=== PATIENT | male | born 1965 | race Caucasian/White ===

== ENCOUNTER 2017-01-09 07:27 | Day surgery (SDC) | payer BC ==
[~2017-01-09 07:27] MED LIST: Midazolam 1 MG/ML 2 ML SDV ONE; Propofol 200 MG/20 ML SDV ONE; Sodium Chloride 0.9% 10 ML ONE; Sodium Tetradecyl Sulfate 1% 20 MG/2 ML SDV ONE; fentaNYL 100 MCG/2 ML SDV ONE
[2017-01-09] MEDS ORDERED: Propofol 200 MG/20 ML SDV ONE ×4 (08:40→09:47)
[2017-01-09] MEDS ORDERED: Sodium Chloride 0.9% 1,000 ML IV SCH (09:00)
[2017-01-09] MEDS ORDERED: Sodium Chloride 0.9% 10 ML SDV IV ONE (09:25)
[2017-01-09] MEDS ORDERED: Sodium Tetradecyl Sulfate 1% 20 MG/2 ML SDV ONE (09:32)
[2017-01-09] MEDS ORDERED: Sodium Chloride 0.9% 10 ML ONE (09:32)
[2017-01-09] MEDS ORDERED: fentaNYL 100 MCG/2 ML SDV ONE (09:41)
[2017-01-09] MEDS: EPINEPHRINE INJECT SCH ×2 (09:42→09:43)
[2017-01-09] MEDS: SODIUM CHLORIDE 0.9% INJECT SCH ×2 (09:42→09:43)
[2017-01-09] MEDS: [UNRECOGNIZED DRUG - OTHER] INJECT SCH ×2 (09:42→09:43)
[2017-01-09] MEDS: SODIUM BICARBONATE INJECT SCH ×2 (09:42→09:43)
[2017-01-09] MEDS: LIDOCAINE 1% INJECT SCH ×2 (09:42→09:43)
[2017-01-09] MEDS ORDERED: Lidocaine 1% with EPINEPHrine 1:100,000 50 ML MDV INJECT ONE (09:54)
[2017-01-09 11:26] VITALS: BP 121/82
--- NOTE | 2017-01-09 12:27 | OR ---
DATE OF PROCEDURE: 01/09/2017 PROCEDURES: 1. Radiofrequency ablation of left greater saphenous vein. 2. Radiofrequency ablation of right greater saphenous vein. 3. Sclerotherapy, left leg, multiple. 4. Sclerotherapy, right leg, multiple. COMPLICATIONS: None. SPOON MAKER: None. PREOPERATIVE DIAGNOSIS: Venous/varicose vein insufficiency with inflammation and pain. POSTOPERATIVE DIAGNOSIS: Venous/varicose vein insufficiency with inflammation and pain. RISKS: Risks, benefits, alternatives, and limitations including, but not limited to infection, bleeding, and DVT were explained to the patient, and he wishes to proceed. PROCEDURE IN DETAIL: The patient was placed in supine position. The left GSV was accessed at the level of the ankle first. This was accessed by a 21-gauge needle, exchanged for a 35,000 wire, then exchanged for a 7-Bulgarian sheath. The RFA probe was advanced to 3 cm in saphenofemoral junction. Tumescent fluid was injected in 1 cm jacket around this. This was verified a second and third time. Direct even pressure was held as the RFA was deployed as described above. Sheath and device were then removed, direct pressure was held for 10 minutes, and Dermabond was applied. The right leg was then performed in the same manner, same fashion, same technique, in the same sequence using the same equipment. After radiofrequency ablation, sclerotherapy was then performed, and there were 5 on the left and 3 on the right. These were all injected using 0.33% sodium tetradecyl and now withdrawn back to ensure intravascular injection only. No more than 2 mL was injected in one location. CoFlex dressings were applied. The patient tolerated the procedure well. Nacho Hernandez MD /[id number]
== END 2017-01-09 11:30 ==
LOC: JP.SDS 07:27
PROVIDERS: ATTEND Surgery
DX: I80.03 Phlebitis and thrombophlebitis of superficial vessels of lower extremities, bilateral (principal); I48.0 Paroxysmal atrial fibrillation; M10.9 Gout, unspecified; F17.220 Nicotine dependence, chewing tobacco, uncomplicated; F41.9 Anxiety disorder, unspecified; F32.9 Major depressive disorder, single episode, unspecified; E78.5 Hyperlipidemia, unspecified; Z98.84 Bariatric surgery status; Z98.890 Other specified postprocedural states
CPT/HCPCS: 36470; 36475; J1642; J2250; J2704; J3010; J7040; J7050; J3490

== ENCOUNTER 2017-04-24 07:26 | Day surgery (SDC) | payer BC ==
[2017-04-24] MEDS ORDERED: Dextrose 5%-Lactated Ringers 1,000 ML IV SCH (08:00)
[2017-04-24] MEDS ORDERED: Glycopyrrolate 0.2 MG/ML 2 ML SDV IVPUSH ONE (08:30)
[2017-04-24] MEDS ORDERED: Cyanocobalamin (Vitamin B12) 1,000 MCG/ML SDV IM ONE (08:30)
[2017-04-24] MEDS ORDERED: Propofol 200 MG/20 ML SDV ONE (08:43)
[2017-04-24] MEDS ORDERED: Midazolam 1 MG/ML 2 ML SDV ONE (08:43)
[2017-04-24] MEDS ORDERED: fentaNYL 100 MCG/2 ML SDV ONE (08:43)
[2017-04-24 11:12] VITALS: BP 139/90
--- NOTE | 2017-04-28 13:56 | OR ---
DATE OF PROCEDURE: 04/24/2017 PREOPERATIVE DIAGNOSIS: Weight regain status post Anthony-en-Y gastric bypass. POSTOPERATIVE DIAGNOSES: Weight regain status post Anthony-en-Y gastric bypass with widened gastrojejunostomy and associated gastrogastric fistula. OPERATIVE PROCEDURE: Upper GI endoscopy with gastric pouch biopsies for CLOtest. ANESTHESIA: IV sedation. INDICATION FOR PROCEDURE: This is a 51-year-old male presenting for evaluation of weight regain status post Anthony-en-Y gastric bypass. Surgery for gastric bypass was done in December 2005. At that time, he weighed 445 pounds. He did get down to 275 pounds around 2 years postoperatively, which was maintained for several years. In the last 2 years, he has had progressive weight regain, now with a weight of 317 pounds. To evaluate the possibility of there being an anatomic abnormality regarding his gastric bypass, he is to undergo an upper endoscopy. Potential risks including bleeding and perforation were discussed, and the patient wishes to proceed. DETAILS OF PROCEDURE: The patient was taken to the operating room and placed in a left lateral decubitus position. IV sedation was administered, after which the upper GI endoscope was passed orally through the length of the esophagus, into the gastric pouch, and from there through the gastrojejunostomy roughly 20 cm into the Anthony limb. Findings included normal esophagus and EG junction area. Gastric pouch was likewise unremarkable. The pouch was fairly small, but there was a quite wide gastrojejunostomy. The most-striking finding was that of a gastrogastric fistula located just posterior to the gastrojejunostomy. This easily admitted the gastroscope, i.e. was somewhere between 1 or 2 cm, and the remainder of the dilated stomach was unremarkable. Biopsies were then obtained from the antrum and sent for CLOtest for H. pylori to assess the patient's H. pylori status. Minimal bleeding from the biopsy sites was seen. The scope was then withdrawn and the procedure then concluded. The patient was taken to the recovery room in a satisfactory condition. Recommendation at this point will be to proceed with a revision of the gastric bypass. This would include closure of the gastrogastric fistula as well as lengthening of his Anthony limb. [facility] will be contacted regarding prior authorization. Danial Ball MD /[id number]
== END 2017-04-24 11:10 | disposition home or self-care (01) ==
LOC: JP.SDS 07:26
PROVIDERS: ATTEND Surgery
DX: K91.89 Other postprocedural complications and disorders of digestive system (principal); K31.6 Fistula of stomach and duodenum; R63.5 Abnormal weight gain; I10 Essential (primary) hypertension; E78.00 Pure hypercholesterolemia, unspecified; F41.9 Anxiety disorder, unspecified; F32.9 Major depressive disorder, single episode, unspecified; Z98.84 Bariatric surgery status
CPT/HCPCS: 43239; 87081; J2250; J2704; J3010; J3420; J7042; J3490

== ENCOUNTER 2017-07-10 09:12 | Inpatient (IN) | payer BC ==
[~2017-07-10 09:12] MED LIST changes: -Midazolam 1 MG/ML 2 ML SDV ONE; -Propofol 200 MG/20 ML SDV ONE; -Sodium Chloride 0.9% 10 ML ONE; -Sodium Tetradecyl Sulfate 1% 20 MG/2 ML SDV ONE; +cefOXitin 2 GM Vial ONE; -fentaNYL 100 MCG/2 ML SDV ONE
[2017-07-10] MEDS ORDERED: Acetaminophen 500 MG Tab PO ONE (09:30)
[2017-07-10] MEDS ORDERED: Gabapentin 300 MG Cap PO ONE (09:30)
[2017-07-10] MEDS ORDERED: Celecoxib 200 MG Cap PO ONE (09:30)
[2017-07-10] MEDS: Scopolamine 1.5 MG Transdermal Patch TRDERM SCH (09:32)
[2017-07-10] MEDS ORDERED: Dextrose 5%-Lactated Ringers 1,000 ML IV SCH (10:00)
[2017-07-10] MEDS ORDERED: Glycopyrrolate 0.2 MG/ML 5 ML MDV ONE (10:27)
[2017-07-10] MEDS ORDERED: Dexamethasone 4 MG/ML SDV ONE (10:27)
[2017-07-10] MEDS ORDERED: Lactated Ringers 1,000 ML ONE ×2 (10:27→13:33)
[2017-07-10] MEDS ORDERED: Propofol 200 MG/20 ML SDV ONE (10:27)
[2017-07-10] MEDS ORDERED: Rocuronium 50 MG/5 ML Vial ONE ×2 (10:27→14:01)
[2017-07-10] MEDS ORDERED: Neostigmine Methylsulfate 1 MG/ML 5 ML Syringe ONE (10:27)
[2017-07-10] MEDS ORDERED: Ondansetron 4 MG/2 ML SDV ONE (10:27)
[2017-07-10] MEDS ORDERED: Succinylcholine 200 MG/10 ML MDV ONE (10:27)
[2017-07-10] MEDS ORDERED: Ketamine 500 MG/5 ML MDV IV SCH (11:00)
[2017-07-10] MEDS ORDERED: Lidocaine 2% 100 MG/5 ML Syringe IVPUSH ONE (11:00)
[2017-07-10] MEDS ORDERED: Ropivacaine 60 ML, Dexamethasone 8 MG, EPINEPHrine 0.4 MG, Sodium Chloride 0.9% 17.6 ML NERVRT SCH ×4 (11:00)
[2017-07-10] MEDS: cefOXitin 2 GM in Premix Bag 1 BAG IV ONE ×2 (11:31→15:53)
[2017-07-10] MEDS ORDERED: ePHEDrine 50 MG/ML SDV ONE (12:25)
[2017-07-10] MEDS ORDERED: Meropenem 500 MG SDV ONE (14:01)
[2017-07-10] MEDS ORDERED: Sodium Chloride 0.9% 10 ML ONE (14:01)
[2017-07-10] MEDS ORDERED: Sugammadex Sodium 200 MG/2 ML VIAL ONE (14:37)
[2017-07-10] MEDS: Lidocaine 0.4%/D5W 2 GM/500 ML BAG IV SCH (15:54)
[2017-07-10] MEDS: SCOPOLAMINE PATCH CHECK TOP SCH (15:55)
[2017-07-10] MEDS: MVI, Adult with Vitamin K 10 ML, Thiamine 200 MG, Chromium/Copper/Mang/Selen/Zn 1 ML in... IV SCH ×4 (15:58)
[2017-07-10] MEDS ORDERED: diphenhydrAMINE 50 MG/ML SDV IVPUSH PRN (16:00)
[2017-07-10] MEDS ORDERED: Metoclopramide 10 MG/2 ML SDV IVPUSH PRN (16:00)
[2017-07-10] MEDS ORDERED: Labetalol 20 MG/4 ML Syringe IVPUSH PRN (16:00)
[2017-07-10] MEDS ORDERED: hydrOXYzine HCl 100 MG/2 ML SDV IM PRN (16:00)
[2017-07-10] MEDS ORDERED: SCOPOLAMINE PATCH CHECK TOP SCH (16:00)
[2017-07-10] MEDS: Gabapentin 250 MG/5 ML Solution ML 470 ML Bottle PO SCH ×2 (17:23→20:40)
[2017-07-10] MEDS: cefOXitin 2 GM in Sodium Chloride 0.9% 50 ML IV SCH ×2 (17:24→23:05)
[2017-07-10] MEDS: Acetaminophen Soln 650 MG/20.3 ML UD Cup PO SCH (17:25)
[2017-07-10] MEDS: Pantoprazole 40 MG Vial IVPUSH SCH (17:25)
[2017-07-10] MEDS: Heparin Sodium 5,000 Units/ML Vial SUBCUT SCH (17:25)
[2017-07-10] MEDS: Dextrose 5%-Lactated Ringers 1,000 ML IV SCH (21:21)
[2017-07-10] MEDS: Metoprolol Tartrate 50 MG Tab PO SCH (21:21)
[2017-07-11] MEDS: Acetaminophen Soln 650 MG/20.3 ML UD Cup PO SCH ×5 (01:57→23:30)
[2017-07-11] MEDS: Heparin Sodium 5,000 Units/ML Vial SUBCUT SCH ×3 (01:57→20:37)
[2017-07-11] MEDS ORDERED: Iohexol 647 MG/ML 50 ML SDV PO STA (02:28)
[2017-07-11] MEDS: Lidocaine 0.4%/D5W 2 GM/500 ML BAG IV SCH (03:38)
[2017-07-11] MEDS: cefOXitin 2 GM in Sodium Chloride 0.9% 50 ML IV SCH ×2 (04:36→11:41)
--- NOTE | 2017-07-11 08:43 | CR ---
Upper GI. Findings: Contrast opacifies the osage stomach. Correlate with procedure. No gross evidence for cont rast leakage otherwise.
[2017-07-11] MEDS: Gabapentin 250 MG/5 ML Solution ML 470 ML Bottle PO SCH ×3 (09:22→21:17)
[2017-07-11] MEDS: Metoprolol Tartrate 50 MG Tab PO SCH ×2 (09:22→21:16)
[2017-07-11] MEDS: Celecoxib 200 MG Cap PO SCH (09:22)
[2017-07-11] MEDS: SCOPOLAMINE PATCH CHECK TOP SCH (09:23)
--- NOTE | 2017-07-11 09:45 | PN ---
DATE OF SERVICE: 07/11/2017 SUBJECTIVE: Sanjeev had revision of Anthony-en-Y gastric bypass surgery. This morning it shows that the gastrogastric fistula remains. Throughout the night vital signs have been stable. Pain has been managed. OBJECTIVE: GENERAL: Sanjeev Wesley is a 51-year-old male, alert and orientated. VITAL SIGNS: TPR; last temp was 0300 hours at 97 and the rest of his vitals 0700 hours, he has 53 pulse, 16 respirations, blood pressure 115/57. HEENT: Negative. NECK: Supple. HEART: Regular rate and rhythm. LUNGS: Clear. ABDOMEN: Dressings dry and intact. Abdominal binder is on. EXTREMITIES: Without peripheral edema. ASSESSMENT: 1. Gastrogastric fistula. 2. Revision Anthony-en-Y gastric bypass surgery. PLAN: See copy of patient consent for surgery. N.p.o. We will evaluate p.r.n. Orders to be written after operative procedure today. Deborah Hwang PA-C /[id number]
[2017-07-11] MEDS ORDERED: fentaNYL 250 MCG/5 ML SDV ONE ×2 (12:20→14:40)
[2017-07-11] MEDS ORDERED: Midazolam 1 MG/ML 2 ML SDV ONE (12:20)
[2017-07-11] MEDS ORDERED: Succinylcholine 200 MG/10 ML MDV ONE ×2 (12:21→16:49)
[2017-07-11] MEDS ORDERED: Neostigmine Methylsulfate 1 MG/ML 5 ML Syringe ONE (12:21)
[2017-07-11] MEDS ORDERED: Glycopyrrolate 0.2 MG/ML 5 ML MDV ONE (12:21)
[2017-07-11] MEDS ORDERED: Propofol 200 MG/20 ML SDV ONE (12:21)
[2017-07-11] MEDS ORDERED: Rocuronium 50 MG/5 ML Vial ONE ×2 (12:21→15:14)
[2017-07-11] MEDS ORDERED: Ondansetron 4 MG/2 ML SDV ONE (12:21)
[2017-07-11] MEDS ORDERED: Dexamethasone 4 MG/ML SDV ONE (12:21)
[2017-07-11] MEDS: Dextrose 5%-Lactated Ringers 1,000 ML IV SCH ×2 (13:02→23:35)
[2017-07-11] MEDS ORDERED: Meropenem 500 MG SDV ONE (13:15)
[2017-07-11] MEDS ORDERED: Ketamine 500 MG/5 ML MDV IV ONE (14:00)
[2017-07-11] MEDS ORDERED: Meropenem 500 MG in Sodium Chloride 0.9% 50 ML IV ONE (14:00)
[2017-07-11] MEDS ORDERED: Ropivacaine 60 ML, Dexamethasone 8 MG, EPINEPHrine 0.4 MG, Sodium Chloride 0.9% 17.6 ML NERVRT SCH ×4 (14:30)
[2017-07-11] MEDS ORDERED: Lactated Ringers 1,000 ML ONE (15:32)
[2017-07-11] MEDS ORDERED: fentaNYL 100 MCG/2 ML SDV ONE (16:38)
[2017-07-11] MEDS ORDERED: hydrOXYzine HCl 100 MG/2 ML SDV IM ONE (17:10)
[2017-07-11] MEDS ORDERED: Meperidine PF 100 MG/ML Syringe IM ONE (17:53)
[2017-07-11] MEDS: MVI, Adult with Vitamin K 10 ML, Thiamine 200 MG, Chromium/Copper/Mang/Selen/Zn 1 ML in... IV SCH ×4 (18:58)
[2017-07-11] MEDS ORDERED: Lidocaine 0.4%/D5W 2 GM/500 ML BAG IV SCH ×2 (19:30)
[2017-07-11] MEDS ORDERED: Naloxone 0.4 MG/ML SDV IV PRN (19:58)
[2017-07-11] MEDS ORDERED: HYDROmorphone/Normal Saline 15 MG/30 ML PCA IV PRN (19:58)
[2017-07-11] MEDS: Pantoprazole 40 MG Vial IVPUSH SCH (20:37)
[2017-07-11] MEDS: Meropenem 500 MG in Sodium Chloride 0.9% 50 ML IV SCH (21:16)
[2017-07-11] MEDS: Benzocaine/Cetylpyridinium/Menthol Lozenge MUCMEM PRN (23:18)
[2017-07-12] MEDS: cefOXitin 2 GM in Sodium Chloride 0.9% 50 ML IV SCH (01:26)
[2017-07-12] MEDS: Heparin Sodium 5,000 Units/ML Vial SUBCUT SCH ×4 (01:26→19:54)
[2017-07-12] MEDS: Meropenem 500 MG in Sodium Chloride 0.9% 50 ML IV SCH ×4 (02:23→19:54)
[2017-07-12] MEDS: Dextrose 5%-Lactated Ringers 1,000 ML IV SCH (05:26)
[2017-07-12] MEDS: Acetaminophen Soln 650 MG/20.3 ML UD Cup PO SCH ×4 (05:26→23:48)
[2017-07-12] MEDS ORDERED: Dextrose 5%-Lactated Ringers 1,000 ML IV SCH (08:15)
[2017-07-12] MEDS: Celecoxib 200 MG Cap PO SCH (08:22)
[2017-07-12] MEDS ORDERED: Cyanocobalamin (Vitamin B12) 1,000 MCG/ML SDV IM ONE (09:00)
[2017-07-12] MEDS: Gabapentin 250 MG/5 ML Solution ML 470 ML Bottle PO SCH ×3 (10:31→21:25)
[2017-07-12] MEDS: Metoprolol Tartrate 50 MG Tab PO SCH ×2 (10:33→21:25)
[2017-07-12] MEDS: SCOPOLAMINE PATCH CHECK TOP SCH (10:33)
[2017-07-12] MEDS: Lisinopril 20 MG Tab PO SCH (10:34)
[2017-07-12] MEDS ORDERED: Lidocaine 0.4%/D5W 2 GM/500 ML BAG IV SCH (13:00)
[2017-07-12] MEDS: Ondansetron 4 MG/2 ML SDV IVPUSH PRN ×2 (16:42→22:03)
[2017-07-12] MEDS: MVI, Adult with Vitamin K 10 ML, Thiamine 200 MG, Chromium/Copper/Mang/Selen/Zn 1 ML in... IV SCH ×4 (16:48)
[2017-07-12] MEDS: Pantoprazole 40 MG Vial IVPUSH SCH (17:02)
[2017-07-13] MEDS: Heparin Sodium 5,000 Units/ML Vial SUBCUT SCH ×3 (04:56→20:05)
[2017-07-13] MEDS: Acetaminophen Soln 650 MG/20.3 ML UD Cup PO SCH ×4 (05:01→23:31)
[2017-07-13] MEDS: Celecoxib 200 MG Cap PO SCH (08:12)
[2017-07-13] MEDS: Gabapentin 250 MG/5 ML Solution ML 470 ML Bottle PO SCH ×3 (08:17→20:05)
[2017-07-13] MEDS: SCOPOLAMINE PATCH CHECK TOP SCH (08:18)
[2017-07-13] MEDS: Lisinopril 20 MG Tab PO SCH (08:18)
[2017-07-13] MEDS: Metoprolol Tartrate 50 MG Tab PO SCH ×2 (08:43→20:04)
[2017-07-13] MEDS: Scopolamine 1.5 MG Transdermal Patch TRDERM SCH (08:44)
[2017-07-13] MEDS ORDERED: Cyanocobalamin (Vitamin B12) 1,000 MCG/ML SDV IM ONE (09:00)
--- NOTE | 2017-07-13 11:35 | PN ---
DATE OF SERVICE: 07/12/2017 The patient is status post takedown of gastrogastric fistula and redo of his gastrojejunostomy yesterday as an open approach. Clinically, he is doing quite well with pain control appeared to be fairly good without narcotics. At this point, despite a fairly long open incision, upper GI x-ray looked good and we will go up to a step-1 diet today and we will back down on the IV rate and restart some of the pertinent oral medications. Addison catheter will come out and will maximize activity and work with pulmonary toilet. Danial Ball MD /[id number]
--- NOTE | 2017-07-13 14:23 | PN ---
DATE OF SERVICE: 07/13/2017 The patient has been afebrile with stable vital signs. No major problems were noted overnight. Oral intake was around 820 over the last 24 hours and tolerating that satisfactorily. We will go up to a step-2 diet without any solids today. I think we will need to discontinue continuous pulse oximetry and have him get in the shower. Pain management on the Celebrex, gabapentin, and Tylenol appeared to be satisfactory. The SATURNINO drains are still slightly somewhat bloody. I think we will hold off on Xarelto given the indication that Xarelto is soft going on the atrial fib/flutter. I will restart the Xarelto, however, if he remains clinically without signs of significant bleeding. We will continue the low-dose heparin today as well. Danial Ball MD /[id number]
[2017-07-13] MEDS: MVI, Adult with Vitamin K 10 ML, Thiamine 200 MG, Chromium/Copper/Mang/Selen/Zn 1 ML in... IV SCH ×4 (16:05)
[2017-07-13] MEDS ORDERED: Pantoprazole 40 MG Delayed-Release Granules 1 Packet PO SCH (16:30)
[2017-07-14] MEDS: Benzocaine/Cetylpyridinium/Menthol Lozenge MUCMEM PRN (03:52)
[2017-07-14] MEDS: Heparin Sodium 5,000 Units/ML Vial SUBCUT SCH (03:53)
[2017-07-14] MEDS: Acetaminophen Soln 650 MG/20.3 ML UD Cup PO SCH (05:46)
[2017-07-14 07:12] VITALS: BP 147/90
[2017-07-14] MEDS ORDERED: Ondansetron 4 MG Tab.DIS PO PRN (07:12)
[2017-07-14] MEDS: Celecoxib 200 MG Cap PO SCH (08:08)
[2017-07-14] MEDS: Metoprolol Tartrate 50 MG Tab PO SCH (08:09)
[2017-07-14] MEDS: Lisinopril 20 MG Tab PO SCH (08:09)
[2017-07-14] MEDS: Gabapentin 250 MG/5 ML Solution ML 470 ML Bottle PO SCH (08:13)
--- NOTE | 2017-07-14 08:26 | DISCH ---
ADMISSION DIAGNOSES: 1. Gastrogastric fistula. 2. Morbid obesity. 3. Atrial flutter with cardioversion, that has been stable. 4. Hypertension. 5. Painful varicose veins. 6. History of gout. 7. Anxiety. 8. Hyperlipidemia. 9. Major depression. DISCHARGE DIAGNOSES: 1. Laparoscopic revision of Anthony-en-Y gastric bypass surgery including repair of gastrogastric fistula, small bowel resection, and liver biopsy, for recurrent morbid obesity associated with gastrogastric fistula and enlarged gastric pouch, lysis of adhesion, segment of small bowel devascularized, and status post previous liver biopsy showing fibrosis. Date 07/10/2017. 2. Exploratory laparotomy with closure of gastrogastric fistula, partial gastrectomy, revision of Anthony-en-Y gastrojejunostomy and repair of incisional hernia for persistent gastrogastric fistula associated with tight stricture in the aspect of the Anthony limb and incisional hernia on 07/11/2017. HISTORY: Allan Wesley had weight regain with an EGD showing a gastrogastric fistula. He had surgery on 07/10/2017 and an upper GI showed persistent gastrogastric fistula. After preoperative evaluation and discussion of possible risks and possible complications, he wished to proceed with surgical procedure. HOSPITAL COURSE: Allan had his first procedure on 07/10/2017. He was brought back to OR on 07/11/2017 with persistent gastrogastric fistula. He had no operative complications. On postop day #1, he was started on pertinent oral medications. Addison catheter was removed. His activity was good. On 07/13/2017, he was started on step-2 with milk and protein shakes. His pain was well managed. His activity was good. On 07/14/2017, his activity was good. Vital signs were stable. Pain managed, received adequate education. He was ready to be discharged to home. PHYSICAL EXAMINATION: GENERAL: Sanjeev Wesley is a 51-year-old male. VITAL SIGNS: Height is 6 feet 2 inches. Weight is 313 pounds. TPR 98.5, 58 16. Blood pressure 147/90. HEENT: Negative. NECK: Supple. HEART: Regular rate and rhythm. LUNGS: Clear. ABDOMEN: [place] in place. He has 3 SATURNINO drains. The 2 peripheral lines will be removed prior to discharge, the midline will remain in, and they are all draining a light pink serosanguineous drainage. EXTREMITIES: Without peripheral edema. DISPOSITION: Discharged to home. CONDITION: Stable and improving. FOLLOWUP: Followup appointment on 07/23/2017 at 9:45 a.m. with Deborah Hwang PA-C. HOME MEDICATIONS: 1. Tylenol 650 mg every 6 hours for 2 weeks. 2. Celebrex 200 mg oral daily #14. 3. Zofran 4 mg ODT q.4 hours p.r.n. nausea #30. 4. He is to resume his home medications; lisinopril 20 mg daily, metoprolol tartrate 150 mg oral twice daily, omeprazole 40 mg oral daily, Xarelto 20 mg oral daily, Zocor 20 mg oral daily, bupropion 450 mg oral daily. 5. He is to stop taking his ascorbic acid, calcium, vitamin D3, B12, ferrous sulfate, multivitamin, Flora-3, and vitamin B complex until first postop appointment. DISCHARGE DIET: Step-2 gastric bypass diet with no cereal. Does protein drinks and meal. ACTIVITY: As tolerated. No lifting greater than 10 pounds for 6 weeks. Activity walk, 6 to 8 times inside your home daily. Driving; do not drive for 2 weeks. Notify provider if any fever, increased pain, swelling, redness, drainage, nausea, or vomiting. Wound incision care; keep site clean and dry. Strip, empty, measure, and record SATURNINO drain 4 times a day and record of drainage to clinic appointment. Wear abdominal binder for 6 weeks. SPECIAL INSTRUCTIONS: Use incentive spirometer 10 times in a row every hour while awake.
--- NOTE | 2017-07-14 08:42 | CR ---
UGI wo KUB HISTORY: eval R -Y GBP FINDINGS: Limited upper GI series was obtained without fluoroscopy. Water-soluble contrast was admini stered orally. Immediate along with 15 minute delayed images were obtained. Small gastric pouch is de monstrated. Contrast passes readily through the gastrojejunostomy into loops of jejunum. No obstructi on is identified. There is no contrast extravasation. Surgical drains are noted left upper quadrant. IMPRESSION: No postoperative complication identified status post Anthony-en-Y gastric bypass.
[2017-07-14] MEDS: SCOPOLAMINE PATCH CHECK TOP SCH (09:03)
--- NOTE | 2017-07-14 09:44 | PN ---
DATE OF SERVICE: 07/11/2017 Mr. Wesley underwent a revisional procedure yesterday which included what appeared to be a ligation of the gastrogastric fistula. An area of attachment between the gastric pouch and the remainder of the bypassed stomach had been isolated and it appeared that area had been with a reasonable degree of certainty. This morning's upper GI x-ray, however, shows persistent gastrogastric fistula with essentially all of the contrast passing into the gastric pouch and into the bypassed portion of the stomach rendering the gastric bypass at this point relatively unuseful in terms of obtaining additional weight loss. Given the lack of ability of this area to be adequately visualized laparoscopically, the plan will be at this point to proceed with an open laparotomy with a ligation of gastrogastric fistula. The possibility we may resect the gastric pouch depending on operative findings was reviewed. Otherwise, the potential risks including bleeding, infection, leaks from various GI tract closures, the possibility of cardiopulmonary, septic or hemorrhagic complications leading to were all discussed, and the patient wishes to proceed. The surgery will be undertaken later on today. Danial Ball MD /[id number]
--- NOTE | 2017-07-14 10:50 | OR ---
DATE OF PROCEDURE: 07/10/2017 PREOPERATIVE DIAGNOSES: 1. Recurrent morbid obesity associated with gastrogastric fistula and enlargement of gastric pouch. 2. Previous liver biopsy showing periportal and bridging fibrosis. POSTOPERATIVE DIAGNOSES: 1. Recurrent morbid obesity associated with gastrogastric fistula and enlargement of gastric pouch. 2. Previous liver biopsy showing periportal and bridging fibrosis. 3. A segment of small bowel devascularized status post lysis of adhesions. ANESTHESIA: General. BUSINESS CONTINUITY PLANNER: Deborah Hwang PA-C. INDICATIONS FOR PROCEDURE: This 51-year-old is status post previous Anthony-en-Y gastric bypass with initially good results. He has recently had significant weight regain. Upper endoscopy recently showed a gastrogastric fistula with enlargement of gastric pouch and gastrojejunostomy. Plan is to proceed with laparoscopic, or if necessary, open repair of the gastrogastric fistula along with revision of the limb lengths in the small bowel to facilitate increased malabsorption, which generally is an essential component in these revisional procedures in terms of getting a satisfactory result. The patient also has a liver biopsy done at the time of the original procedure showing periportal and bridging fibrosis, which could be indicated to provide a followup biopsy at this point to evaluate the evolution of that pathology. Potential risks of the procedure including bleeding, infection, leaks from various GI tract closures, problems with bowel obstruction overtime, problems with the distalization of the Anthony limb resulting in frequent loose bowel movements and/or diarrhea, and possible nutritional sequela requiring additional adjustments of the small bowel limb lengths were all gone over. Lastly, the remote possibility of cardiopulmonary, septic, or hemorrhagic complications leading to were discussed, and the patient wishes to proceed. DETAILS OF PROCEDURE: The patient was taken to the operating room and after general endotracheal anesthesia was induced, he was placed in a lithotomy position, and the abdomen was prepped and draped. Using ultrasound guidance, bilateral subcostal transversus abdominis plane blocks were placed and the usual solutions were injected without difficulty. At 15 cm inferior and 5 cm left of xiphoid process, a transverse incision was made, and the peritoneal cavity was entered under direct vision with an Optiview trocar and inflated to 15 mmHg pressure with CO2. Laparoscope was then reinserted. No underlying trocar insertion site injuries were seen. Following this, 5 additional trocars were placed across the upper and midabdomen and general exploration was undertaken. At this point, the liver was evaluated. This appeared to be less fatty infiltrated than typically would be seen with a primary gastric bypass case. Cristino-Cut needle biopsies were obtained from the left lobe of the liver. Minimal bleeding from the biopsy sites was controlled with electrocautery. At this point, attention was taken to the area of the stomach. The liver was retracted anteriorly and some adhesions between the liver and the underlying Anthony limb and gastric pouch were then taken down with Harmonic scalpel. A plane was then established between the bypass portion of the stomach and the gastric pouch. This dissection was continued up to the point where the 2 appeared to be attached to each other. This area was encircled and then divided with SARA black loads. At that point, it appeared that the stomach as best as one could visualize from laparoscopic approach was from the gastric pouch. An Hai tube was then placed orally across the gastric pouch and into the gastrojejunostomy, so as to delineate that anatomy somewhat more concretely and avoid overtightening of the gastric pouch and gastrojejunostomy. It was felt that the staple line between the pouch and the adjacent bypassed stomach was such that this likely tightened down the gastric pouch to a significant degree, but without causing an obstruction per se. Attention was then taken to the small bowel. The Anthony limb was noted to be 150 cm and the biliopancreatic limb around 50 cm. At that point, a decision was made to proceed with division of the Anthony limb flush with the jejunojejunostomy and then create a more distal anastomosis given the patient a total limb alimentary length of around 400 cm. Typically, we will revise these to 300 cm length, but with the adjustments in the gastric pouch, it was felt that a somewhat more liberal total alimentary length would be appropriate. At this point, the small bowel was divided at the part where the Anthony limb entered the jejunojejunostomy with SARA stapler. As this was dissected free, the length of this became significantly devascularized. Roughly, 15 cm of this was then resected, leaving the remaining Anthony limb very well vascularized. The bowel was resected with a SARA guzman load at the visceral component, and the underlying mesentery divided with Harmonic scalpel, and that specimen was delivered from the field. At this point, with the Anthony limb now being around 135 cm, the ileocecal valve was identified and the small bowel then traced out to 165 cm proximal to that, which would give the patient an overall alimentary length of around 400 cm. At that level, the [id number] enteroenterostomy was accomplished with internal firing of the Endo-SARA 60-mm stapler. The common opening was closed transversely with the same stapler and angles anastomosed and mesenteric defect approximated with some 0 Ethibond stitch along with fibrin sealant. At this point, some fibrin sealant was placed somewhat adjacent to the gastric division site and some omentum placed over that area of fibrin sealant. With no further problems noted, the abdomen was irrigated with cefoxitin-containing saline solution, and the trocars were sequentially removed. The fascia at the 12 and 15 mm trocar sites was closed with 0 Vicryl stitch, and the skin at each incision with 4-0 Vicryl skin stitch. Dressing was applied. The patient was taken to the recovery room in a satisfactory condition. Physician welder assistant, Deborah Hwang, played an essential role in assisting in this case, helping to position the patient, retract structures as needed, as well as suturing and cutting sutures when indicated. Her presence improved patient safety and decreased the operative time. Danial Ball MD /[id number]
--- NOTE | 2017-07-14 12:18 | OR ---
DATE OF PROCEDURE: 07/11/2017 PREOPERATIVE DIAGNOSIS: Persistent gastrogastric fistula. POSTOPERATIVE DIAGNOSES: 1. 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 Plan resectional procedure for reconstruction. 2. Incisional hernia. OPERATIVE PROCEDURES: Exploratory laparotomy with; 1. Partial gastrectomy with Anthony-en-Y gastrojejunostomy (08746). 2. Repair of incisional hernia (44621). 3. Intraoperative upper GI endoscopy (96167). ANESTHESIA: General. CLAIM REPRESENTATIVE: Deborah Hwang PA-C. INDICATIONS FOR PROCEDURE: Please see progress note dictated earlier today. DETAILS OF PROCEDURE: The patient was taken to the operative room and after general endotracheal anesthesia was induced, a Addison catheter was inserted. Using continuous ultrasound, bilateral subcostal transversus abdominis plane blocks were placed once again without difficulty using the standard solution. The abdomen was then prepped and draped. An upper midline incision from the xiphoid to roughly a handsbreadths below the umbilicus was made and carried down through the full-thickness abdominal wall. During the course of dissection, an incisional hernia containing some omentum and preperitoneal fat was encountered. This was located around the previous trocar sites. The hernia contents were excised and repair of this was subsequently accomplished as part of the closure of the abdominal fascia. After going under the peritoneal cavity, a general exploration was undertaken. The small bowel anastomosis done yesterday appeared at this point to be intact and otherwise uncomplicated. Attention was then taken to the area of the proximal stomach. Some adhesions between the liver, more or less to the right of the area of dissection yesterday were taken down with a combination of cautery and blunt dissection. This eventually allowed identification of the gastric pouch. An Hai tube was placed at this point which should pass from the gastric pouch and into the Anthony limb. The area posterior to the gastric pouch and gastrojejunostomy was then dissected out. This appeared to be densely inflamed. At this point, I continued to delineate the anatomy. Upper GI endoscope was passed orally through the length of the esophagus and into the gastric pouch and manipulated from there through the gastrogastric fistula into the bypassed portion of the stomach. This was left in place at this point to maintain an adequate landmark in terms of where the gastrogastric fistula was located. Prior to placement of the gastric pouch, the Hai tube had been removed. At this point, the gastric tissue around the point where the gastroscope passed through the fistula was encircled. Once that was encircled completely, the gastroscope was withdrawn and that area then stapled off with a series of SARA black loads. At this point, I attempted to pass the Hai tube from the esophagus through the gastric pouch and into the gastrojejunostomy, was unsuccessful. This area appeared to be quite narrowed. This likely had resulted in enlargement of the gastrogastric fistula which at this point appeared to be quite a bit larger than had been seen at the earlier recent endoscopy. Given this, it was felt that the best approach at this point would be to resect the gastric pouch and proximal gastrectomy with Anthony-en-Y reconstruction. The stomach just above the gastrojejunostomy was then encircled. After removal of the Hai tube, it was then divided with SARA black loads. The small bowel, as it came up to the gastrojejunostomy, was then divided as well with the SARA jorge, and the remaining vascular attachments to the gastric pouch, gastrojejunostomy, and proximal end of the Anthony limb were then divided with mesenteric loads and that specimen delivered from the field. The anvil of a 25-mm EEA stapler was attached to a [place] sump type tube. The latter was brought down through the mouth and taken out through a small opening in the gastric pouch, allowing the anvil to be pulled down to within the gastric pouch as well. The divided end of the Anthony limb was then opened and main body of the EEA stapler passed several centimeters into the lumen of the small bowel, brought up the anvil and united with it, thus creating the gastrojejunostomy. Upon removal of the stapler, double donuts of mucosa were noted within it. The gastrojejunostomy was then reinforced with some interrupted 3-0 Vicryl seromuscular stitch along with fibrin sealant. The anastomosis overall appeared to be intact. With resecting minimal amount of the previous Anthony limb, this anastomosis came together with essentially no tension and blood supply to both aspects appeared to be satisfactory. At this point, no further problems were noted. The abdomen was irrigated with meropenem-containing saline solution. Two Elkin-Parkinson drains were then placed through stab wounds in the left subcostal area, placed adjacent to the gastrojejunostomy. The midline fascia was then closed with #2 Vicryl stitch that would include the area of repair of the incisional hernia. Subcutaneous tissue was then drained with a 10-[place] round Elkin-Parkinson drain and a subdermal layer of 4-0 Vicryl stitch placed followed by skin jorge. The drains were affixed with 4-0 Vicryl stitch as well. The patient was taken to the recovery room in a satisfactory condition. There were no evident complications. Physician car rental sales assistant, Deborah Hwang, played an essential role in assisting in this case, helping to position the patient, retract structures as needed, as well as suturing and cutting sutures when indicated. Her presence improved patient safety and decreased the operative time. Danial Ball MD /[id number]
== END 2017-07-14 08:50 | disposition home or self-care (01) | DRG 403 ==
LOC: JP.SDS 09:12 → JP.2SS 09:12 → EDSTATUS 09:30 → JP.2SS 14:30 → UNDOADMIN 14:30 → JP.2SS 07-13 20:01 → UNDODISIN 07-14 08:50
PROVIDERS: ADMIT Surgery; ATTEND Surgery
PROC: 0D164ZA Bypass Stomach to Jejunum, Percutaneous Endoscopic Approach (ICD-10-PCS; principal; 2017-07-10)
PROC: 0DBA4ZX Excision of Jejunum, Percutaneous Endoscopic Approach, Diagnostic (ICD-10-PCS; 2017-07-10)
PROC: 0DB64ZX Excision of Stomach, Percutaneous Endoscopic Approach, Diagnostic (ICD-10-PCS; 2017-07-10)
PROC: 0FB24ZX Excision of Left Lobe Liver, Percutaneous Endoscopic Approach, Diagnostic (ICD-10-PCS; 2017-07-10)
PROC: 3E0T3BZ Introduction of Anesthetic Agent into Peripheral Nerves and Plexi, Percutaneous Approach (ICD-10-PCS; 2017-07-10)
PROC: 0WQF0ZZ Repair Abdominal Wall, Open Approach (ICD-10-PCS; 2017-07-11)
PROC: 0DB60ZX Excision of Stomach, Open Approach, Diagnostic (ICD-10-PCS; 2017-07-11)
PROC: 0DBA0ZX Excision of Jejunum, Open Approach, Diagnostic (ICD-10-PCS; 2017-07-11)
PROC: 0WJP0ZZ Inspection of Gastrointestinal Tract, Open Approach (ICD-10-PCS; 2017-07-11)
PROC: 0DJ68ZZ Inspection of Stomach, Via Natural or Artificial Opening Endoscopic (ICD-10-PCS; 2017-07-11)
PROC: 3E0T3BZ Introduction of Anesthetic Agent into Peripheral Nerves and Plexi, Percutaneous Approach (ICD-10-PCS; 2017-07-11)
DX: E66.01 Morbid (severe) obesity due to excess calories (principal); Z68.41 Body mass index [BMI] 40.0-44.9, adult; K31.6 Fistula of stomach and duodenum; E66.8 Other obesity; K74.0 Hepatic fibrosis; Z98.84 Bariatric surgery status; Z98.0 Intestinal bypass and anastomosis status; I10 Essential (primary) hypertension; E78.5 Hyperlipidemia, unspecified; F32.9 Major depressive disorder, single episode, unspecified; F17.220 Nicotine dependence, chewing tobacco, uncomplicated; K43.0 Incisional hernia with obstruction, without gangrene; K52.89 Other specified noninfective gastroenteritis and colitis; I48.92 Unspecified atrial flutter; Z79.01 Long term (current) use of anticoagulants; Z79.82 Long term (current) use of aspirin; I86.8 Varicose veins of other specified sites
CPT/HCPCS: 36415; 74240; 74240-26; 80053; 82962; 83735; 83880; 84100; 85025; 86850; 86900; 86901; 88302; 88307; 88313; 94762; A9270-GY; C9113; C9399; J0171; J0330; J0694; J1100; J1644; J2001; J2175; J2185; J2250; J2405; J2704; J2710; J2795; J3010; J3410; J3411; J3420; J7030; J7040; J7042; J7050; J7120; Q9967

== ENCOUNTER 2020-06-14 20:21 | Emergency (ER) | payer BC ==
[2020-06-14] MEDS ORDERED: Diltiazem 25 MG/5 ML SDV IVPUSH ONE (20:43)
[2020-06-14] MEDS ORDERED: Sodium Chloride 0.9% 1,000 ML IV ONE (20:45)
[2020-06-14] MEDS ORDERED: Sodium Chloride 0.9% 10 ML Syringe FLUSH PRN (20:45)
[2020-06-14] MEDS ORDERED: Sodium Chloride 0.9% 1,000 ML IV SCH ×2 (22:00→23:45)
[2020-06-14] MEDS ORDERED: Diltiazem 100 MG in Sodium Chloride 0.9% 100 ML IV SCH (22:00)
[2020-06-14] MEDS ORDERED: Enoxaparin 100 MG/1 ML Syringe SUBCUT ONE (23:50)
[2020-06-15] MEDS ORDERED: Aluminum Hydroxide/Magnesium Hydroxide/Simethicone Susp 30 ML Cup PO ONE ×2 (00:01→02:24)
--- NOTE | 2020-06-15 00:01 | EDM.PDOC ---
ED HPI GENERAL MEDICAL PROBLEM - General Chief Complaint: Cardiovascular Problem Stated Complaint: POSSIBLE COVID/COVID SYMPTOMS Time Seen by Provider: 06/14/20 20:37 Source of Information: Reports: Patient History Limitations: Reports: No Limitations - History of Present Illness INITIAL COMMENTS - FREE TEXT/NARRATIVE: Sanjeev is a 54-year-old male presenting to the ED for evaluation of acute onset of rapid heartbeat, pallor, diaphoresis, dizziness and lightheadedness, and near syncope. Patient was at work at [employer] when he started to develop the symptoms just prior to arrival. He denies any fever but did have chills, diaphoresis, and felt unwell. He felt like he was going to pass out. He felt palpitations in his chest but denied any chest pain. He had some mild nausea but no vomiting. He has had some generalized abdominal pain but has not been passing gas. He does have a past medical history significant for atrial fibrillation. He states that normally he is able to tell when he goes in and out of it, however, he has never had it this bad before. He also has a history for gastric bypass. He was previously on Xarelto, however, this was discontinued for an unknown reason. He normally doctors through [facility] in [place] so we do not have access to those records. The patient thinks that the Xarelto was discontinued because he had 5 syncopal episodes and was found to have low blood pressure. Again there is no indicator as to why they stopped his NOAC. Upon presenting to the ED, the patient was brought back immediately and found to be in atrial fibrillation with a rapid ventricular rate greater than 170 bpm. The highest rate that we have seen is been 190 bpm. denies pain Pain Score (Numeric/FACES): 0 - Related Data Allergies Allergy/AdvReac Type Severity Reaction Status Date / Time No Known Allergies Allergy Verified 06/14/20 20:33 Home Meds: Home Meds Acetaminophen [Tylenol] 650 mg PO Q6H #1200 ml 07/14/17 [Rx] Furosemide [Lasix] 20 mg PO BID 06/14/20 [History] Past Medical History HEENT History: Reports: Impaired Vision Other HEENT History: wears glasses Cardiovascular History: Reports: Afib, High Cholesterol, Hypertension Other Cardiovascular History: paroxysmal atrial fibrillation Respiratory History: Reports: Sleep Apnea, Other (See Below) Other Respiratory History: cpap at home Gastrointestinal History: Reports: GERD, GI Bleed, Other (See Below) Other Gastrointestinal History: ulcers Musculoskeletal History: Reports: Gout Psychiatric History: Reports: Anxiety, Depression Endocrine/Metabolic History: Reports: Obesity/BMI 30+, Vitamin D Deficiency Hematologic History: Reports: B12 Deficiency, Iron Deficiency Dermatologic History: Reports: Other (See Below) Other Dermatologic History: vericos veins removed bilateral legs - Infectious Disease History Infectious Disease History: Reports: Chicken Pox - Past Surgical History HEENT Surgical History: Reports: None Cardiovascular Surgical History: Reports: Other (See Below) Other Cardiovascular Surgeries/Procedures: ECHO Respiratory Surgical History: Reports: None GI Surgical History: Reports: Bariatric Procedure, Colonoscopy, EGD, Damari Fundoplication, Other (See Below) Other GI Surgeries/Procedures: surgery for acid reflux. perforation of small bowel Male Surgical History: Reports: Other (See Below) Other Male Surgeries/Procedures: left testicle removed along with non cancerous growth Endocrine Surgical History: Reports: None Musculoskeletal Surgical History: Reports: Carpal Tunnel, Other (See Below) Other Musculoskeletal Surgeries/Procedures:: left foot surgery. left achilles tendon lengthened Dermatological Surgical History: Reports: None Social & Family History - Family History Family Medical History: No Pertinent Family History Cardiac: Reports: CAD, Hypertension Endocrine/Metabolic: Reports: Diabetes, type II - Caffeine Use Caffeine Use: Reports: Coffee Other Caffeine Use: occasional coffee very rare others Caffeine Use Comment: Rare cup of coffee - Recreational Drug Use Recreational Drug Use: No ED ROS GENERAL - Review of Systems Review Of Systems: See Below Constitutional: Reports: Weakness, Fatigue, Diaphoresis HEENT: Reports: No Symptoms Respiratory: Reports: Shortness of Breath Cardiovascular: Reports: Lightheadedness, Palpitations, Syncope Endocrine: Reports: No Symptoms GI/Abdominal: Reports: No Symptoms : Reports: No Symptoms Musculoskeletal: Reports: No Symptoms Skin: Reports: Pallor, Diaphoresis Neurological: Reports: Dizziness, Syncope (Near syncope), Weakness Psychiatric: Reports: Anxiety Hematologic/Lymphatic: Reports: No Symptoms Immunologic: Reports: No Symptoms ED EXAM, GENERAL - Physical Exam Exam: See Below Exam Limited By: No Limitations General Appearance: Alert, Anxious, Mild Distress, Other (Diaphoresis) Eye Exam: Bilateral Eye: EOMI, PERRL Throat/Mouth: Normal Inspection, Normal Lips, Normal Teeth, Normal Gums, Normal Oropharynx, Normal Voice, No Airway Compromise Head: Atraumatic, Normocephalic Neck: Normal Inspection, Supple, Non-Tender, Full Range of Motion Respiratory/Chest: No Respiratory Distress, Lungs Clear, Normal Breath Sounds, No Accessory Muscle Use, Chest Non-Tender Cardiovascular: Normal Peripheral Pulses, No Edema, No JVD, No Murmur, Tachycard ia, Irregularly Irregular Peripheral Pulses: 2+: Radial (L), Radial (R), Posterior Tibial (L), Posterior Tibial (R) GI/Abdominal: Normal Bowel Sounds, Soft, Non-Tender, No Organomegaly, No Distention, No Abnormal Bruit, No Mass (Male) Exam: Deferred Rectal (Males) Exam: Deferred Back Exam: Normal Inspection, Full Range of Motion, NT Extremities: Normal Inspection, Normal Range of Motion, Non-Tender, Normal Capillary Refill, No Pedal Edema Neurological: Alert, Oriented, CN II-XII Intact, Normal Cognition, No Motor/Sensory Deficits Psychiatric: Anxious Skin Exam: Warm, Dry, Intact, Normal Color, No Rash Lymphatic: No Adenopathy #1 Interpretation EKG Date: 06/14/20 Time: 20:27 Rhythm: A-Fib Rate (Beats/Min): 187 [place]: LAD-Left [place] Deviation P-Wave: Absent ST-T: Other (Early repolarization abnormality.) QT: Normal Comparison: Change From Previous EKG Course - Vital Signs Last Recorded V/S: Last Vital Signs Temp 36.3 C 06/15/20 01:34 Pulse 103 H 06/15/20 01:34 Resp 9 L 06/15/20 01:34 BP 120/87 06/15/20 01:34 Pulse Ox 98 06/15/20 01:34 - Orders/Labs/Meds Orders: Active Orders 24 hr Category Date Time Status Diltiazem [Cardizem] 100 mg Med 06/14/20 22:00 Active Sodium Chloride 0.9% [Normal Saline] 100 ml IV TITRATE Sodium Chloride 0.9% [Normal Saline] 1,000 ml Med 06/14/20 22:00 Active IV ASDIRECTED Sodium Chloride 0.9% [Normal Saline] 1,000 ml Med 06/14/20 23:45 Active IV ASDIRECTED Sodium Chloride 0.9% [Saline Flush] Med 06/14/20 20:45 Active 10 ml FLUSH ASDIRECTED PRN Saline Lock Insert [OM.PC] Routine Oth 06/14/20 20:45 Ordered Medication Orders Diltiazem HCl 100 mg/ Sodium (Chloride) 100 mls @ 5 mls/hr IV TITRATE ERIC; Protocol Last Titration: 06/14/20 23:36 Dose: 10 mg/hr, 10 mls/hr Documented by: Admin: 06/14/20 23:01 Dose: 5 mg/hr, 5 mls/hr Documented by: RAINER Sodium Chloride (Normal Saline) 1,000 mls @ 500 mls/hr IV ASDIRECTED ERIC Last Admin: 06/14/20 21:52 Dose: 500 mls/hr Documented by: RAINER Sodium Chloride (Normal Saline) 1,000 mls @ 75 mls/hr IV ASDIRECTED ERIC Last Admin: 06/15/20 00:07 Dose: 75 mls/hr Documented by: RAINER Sodium Chloride (Saline Flush) 10 ml FLUSH ASDIRECTED PRN PRN Reason: Keep Vein Open Last Admin: 06/14/20 21:03 Dose: 10 ml Documented by: RAINER Labs: Laboratory Tests 06/14/20 06/14/20 06/14/20 Range/Units 20:25 20:25 20:25 WBC 7.7 (4.5-11.0) K/uL RBC 3.98 L (4.30-5.90) M/uL Hgb 11.5 L (12.0-15.0) g/dL Hct 35.3 L (40.0-54.0) % MCV 89 (80-98) fL MCH 29 (27-31) pg MCHC 33 (32-36) % Plt Count 129 L (150-400) K/uL Neut % (Auto) 73 H (36-66) % Lymph % (Auto) 21 L (24-44) % [place] % (Auto) 5 (2-6) % Eos % (Auto) 1 L (2-4) % Baso % (Auto) 1 (0-1) % PT 11.8 (9.5-12.0) sec INR 1.08 (0.80-1.20) APTT 27.0 (27.0-36.0) sec D-Dimer, Quantitative 927.99 H (0.0-500.0) ng/mL Sodium (140-148) mmol/L Potassium (3.6-5.2) mmol/L Chloride (100-108) mmol/L Carbon Dioxide (21-32) mmol/L Anion Gap (5.0-14.0) mmol/L BUN (7-18) mg/dL Creatinine (0.8-1.3) mg/dL Est Cr Clr Drug Dosing mL/min Estimated GFR (MDRD) (>60) Glucose (74-106) mg/dL Calcium (8.5-10.1) mg/dL Total Bilirubin (0.2-1.0) mg/dL AST (15-37) U/L ALT (12-78) U/L Alkaline Phosphatase (46-116) U/L Troponin I (0.000-0.056) ng/mL C-Reactive Protein (0.0-0.3) mg/dL Total Protein (6.4-8.2) g/dL Albumin (3.4-5.0) g/dL Globulin (2.3-3.5) g/dL Albumin/Globulin Ratio (1.2-2.2) Procalcitonin ng/mL Free T4 (0.76-1.46) ng/dL TSH, Ultra Sensitive (0.358-3.740) uIU/mL Urine Color (YELLOW) Urine Appearance (CLEAR) Urine pH (5.0-8.0) Ur Specific [place] (1.008-1.030) Urine Protein (NEGATIVE) mg/dL Urine Glucose (UA) (NEGATIVE) mg/dL Urine Ketones (NEGATIVE) mg/dL Urine Occult Blood (NEGATIVE) Urine Nitrite (NEGATIVE) Urine Bilirubin (NEGATIVE) Urine Urobilinogen (0.2-1.0) EU/dL Ur Leukocyte Esterase (NEGATIVE) Urine RBC (0-5) Urine WBC (0-5) Ur Epithelial Cells Amorphous Sediment Urine Bacteria Urine Mucus Urine Opiates Screen (NEGATIVE) Ur Oxycodone Screen (NEGATIVE) Urine Methadone Screen (NEGATIVE) Ur Propoxyphene Screen (NEGATIVE) Ur Barbiturates Screen (NEGATIVE) Ur Tricyclics Screen (NEGATIVE) Ur Phencyclidine Scrn (NEGATIVE) Ur Amphetamine Screen (NEGATIVE) U Methamphetamines Scrn (NEGATIVE) Urine MDMA Screen (NEGATIVE) U Benzodiazepines Scrn (NEGATIVE) U Cocaine Metab Screen (NEGATIVE) U Marijuana (THC) Screen (NEGATIVE) SARS-CoV-2 RNA (EDD) (NEGATIVE) 06/14/20 06/14/20 06/14/20 Range/Units 20:25 20:25 20:39 WBC (4.5-11.0) K/uL RBC (4.30-5.90) M/uL Hgb (12.0-15.0) g/dL Hct (40.0-54.0) % MCV (80-98) fL MCH (27-31) pg MCHC (32-36) % Plt Count (150-400) K/uL Neut % (Auto) (36-66) % Lymph % (Auto) (24-44) % [place] % (Auto) (2-6) % Eos % (Auto) (2-4) % Baso % (Auto) (0-1) % PT (9.5-12.0) sec INR (0.80-1.20) APTT (27.0-36.0) sec D-Dimer, Quantitative (0.0-500.0) ng/mL Sodium 140 (140-148) mmol/L Potassium 3.9 (3.6-5.2) mmol/L Chloride 104 (100-108) mmol/L Carbon Dioxide 26 (21-32) mmol/L Anion Gap 10.1 (5.0-14.0) mmol/L BUN 8 D (7-18) mg/dL Creatinine 1.3 (0.8-1.3) mg/dL Est Cr Clr Drug Dosing 74.65 mL/min Estimated GFR (MDRD) 57 L (>60) Glucose 91 (74-106) mg/dL Calcium 7.9 L (8.5-10.1) mg/dL Total Bilirubin 0.9 D (0.2-1.0) mg/dL AST 48 H (15-37) U/L ALT 31 (12-78) U/L Alkaline Phosphatase 144 H D (46-116) U/L Troponin I < 0.017 (0.000-0.056) ng/mL C-Reactive Protein < 0.05 (0.0-0.3) mg/dL Total Protein 5.4 L (6.4-8.2) g/dL Albumin 2.3 L (3.4-5.0) g/dL Globulin 3.1 (2.3-3.5) g/dL Albumin/Globulin Ratio 0.7 L (1.2-2.2) Procalcitonin < 0.05 ng/mL Free T4 0.73 L (0.76-1.46) ng/dL TSH, Ultra Sensitive 4.592 H (0.358-3.740) uIU/mL Urine Color (YELLOW) Urine Appearance (CLEAR) Urine pH (5.0-8.0) Ur Specific [place] (1.008-1.030) Urine Protein (NEGATIVE) mg/dL Urine Glucose (UA) (NEGATIVE) mg/dL Urine Ketones (NEGATIVE) mg/dL Urine Occult Blood (NEGATIVE) Urine Nitrite (NEGATIVE) Urine Bilirubin (NEGATIVE) Urine Urobilinogen (0.2-1.0) EU/dL Ur Leukocyte Esterase (NEGATIVE) Urine RBC (0-5) Urine WBC (0-5) Ur Epithelial Cells Amorphous Sediment Urine Bacteria Urine Mucus Urine Opiates Screen (NEGATIVE) Ur Oxycodone Screen (NEGATIVE) Urine Methadone Screen (NEGATIVE) Ur Propoxyphene Screen (NEGATIVE) Ur Barbiturates Screen (NEGATIVE) Ur Tricyclics Screen (NEGATIVE) Ur Phencyclidine Scrn (NEGATIVE) Ur Amphetamine Screen (NEGATIVE) U Methamphetamines Scrn (NEGATIVE) Urine MDMA Screen (NEGATIVE) U Benzodiazepines Scrn (NEGATIVE) U Cocaine Metab Screen (NEGATIVE) U Marijuana (THC) Screen (NEGATIVE) SARS-CoV-2 RNA (EDD) (NEGATIVE) 06/14/20 06/14/20 06/14/20 Range/Units 22:57 22:57 23:53 WBC (4.5-11.0) K/uL RBC (4.30-5.90) M/uL Hgb (12.0-15.0) g/dL Hct (40.0-54.0) % MCV (80-98) fL MCH (27-31) pg MCHC (32-36) % Plt Count (150-400) K/uL Neut % (Auto) (36-66) % Lymph % (Auto) (24-44) % [place] % (Auto) (2-6) % Eos % (Auto) (2-4) % Baso % (Auto) (0-1) % PT (9.5-12.0) sec INR (0.80-1.20) APTT (27.0-36.0) sec D-Dimer, Quantitative (0.0-500.0) ng/mL Sodium (140-148) mmol/L Potassium (3.6-5.2) mmol/L Chloride (100-108) mmol/L Carbon Dioxide (21-32) mmol/L Anion Gap (5.0-14.0) mmol/L BUN (7-18) mg/dL Creatinine (0.8-1.3) mg/dL Est Cr Clr Drug Dosing mL/min Estimated GFR (MDRD) (>60) Glucose (74-106) mg/dL Calcium (8.5-10.1) mg/dL Total Bilirubin (0.2-1.0) mg/dL AST (15-37) U/L ALT (12-78) U/L Alkaline Phosphatase (46-116) U/L Troponin I (0.000-0.056) ng/mL C-Reactive Protein (0.0-0.3) mg/dL Total Protein (6.4-8.2) g/dL Albumin (3.4-5.0) g/dL Globulin (2.3-3.5) g/dL Albumin/Globulin Ratio (1.2-2.2) Procalcitonin ng/mL Free T4 (0.76-1.46) ng/dL TSH, Ultra Sensitive (0.358-3.740) uIU/mL Urine Color Yellow (YELLOW) Urine Appearance Clear (CLEAR) Urine pH 7.0 (5.0-8.0) Ur Specific [place] 1.020 (1.008-1.030) Urine Protein 100 H (NEGATIVE) mg/dL Urine Glucose (UA) Negative (NEGATIVE) mg/dL Urine Ketones Negative (NEGATIVE) mg/dL Urine Occult Blood Small H (NEGATIVE) Urine Nitrite Negative (NEGATIVE) Urine Bilirubin Negative (NEGATIVE) Urine Urobilinogen 0.2 (0.2-1.0) EU/dL Ur Leukocyte Esterase Negative (NEGATIVE) Urine RBC 0-5 (0-5) Urine WBC Not seen (0-5) Ur Epithelial Cells Not seen Amorphous Sediment Few Urine Bacteria Not seen Urine Mucus Not seen Urine Opiates Screen Negative (NEGATIVE) Ur Oxycodone Screen Negative (NEGATIVE) Urine Methadone Screen Negative (NEGATIVE) Ur Propoxyphene Screen Negative (NEGATIVE) Ur Barbiturates Screen Negative (NEGATIVE) Ur Tricyclics Screen Negative (NEGATIVE) Ur Phencyclidine Scrn Negative (NEGATIVE) Ur Amphetamine Screen Negative (NEGATIVE) U Methamphetamines Scrn Negative (NEGATIVE) Urine MDMA Screen Negative (NEGATIVE) U Benzodiazepines Scrn Negative (NEGATIVE) U Cocaine Metab Screen Negative (NEGATIVE) U Marijuana (THC) Screen Negative (NEGATIVE) SARS-CoV-2 RNA (EDD) Negative (NEGATIVE) Meds: Medications Generic Name Dose Route Start Last Admin Trade Name Freq PRN Reason Stop Dose Admin Diltiazem HCl 100 mg/ Sodium 100 mls @ 5 mls/hr 06/14/20 22:00 06/14/20 23:36 Chloride IV 10 mg/hr TITRATE ERIC 10 mls/hr Titration Protocol 5 MG/HR Sodium Chloride 1,000 mls @ 500 mls/hr 06/14/20 22:00 06/14/20 21:52 Normal Saline IV 500 mls/hr ASDIRECTED ERIC Administration Sodium Chloride 1,000 mls @ 75 mls/hr 06/14/20 23:45 06/15/20 00:07 Normal Saline IV 75 mls/hr ASDIRECTED ERIC Administration Sodium Chloride 10 ml 06/14/20 20:45 06/14/20 21:03 Saline Flush FLUSH 10 ml ASDIRECTED PRN Administration Keep Vein Open Discontinued Medications Generic Name Dose Route Start Last Admin Trade Name Freq PRN Reason Stop Dose Admin Al Hydroxide/Mg Hydroxide 30 ml 06/15/20 00:01 06/15/20 00:07 Mag-Al Plus PO 06/15/20 00:02 30 ml ONETIME ONE Administration Diltiazem HCl 20 mg 06/14/20 20:43 06/14/20 21:00 Diltiazem IVPUSH 06/14/20 20:44 20 mg ONETIME ONE Administration Enoxaparin Sodium 100 mg 06/14/20 23:50 06/15/20 00:06 Lovenox SUBCUT 06/14/20 23:51 100 mg ONETIME ONE Administration Sodium Chloride 1,000 mls @ 999 mls/hr 06/14/20 20:45 06/14/20 20:40 Normal Saline IV 06/14/20 21:45 999 mls/hr .BOLUS ONE Administration Sodium Chloride 100 mls @ 4 mls/sec 06/15/20 01:02 06/15/20 01:15 Normal Saline IV 06/15/20 01:03 4 mls/sec ASDIRECTED STA Administration Iopamidol 100 ml 06/15/20 01:02 06/15/20 01:15 Isovue-370 (76%) IV 06/15/20 01:03 100 ml . DIRECTED STA Administration - Re-Assessments/Exams Free Text/Narrative Re-Assessment/Exam: 06/15/20 00:12 Sanjeev is a 54-year-old male presenting to the ED from work at [employer] for evaluation of acute onset of palpitations with a rapid heartbeat, lightheadedness, near-syncope, diaphoresis, shortness of breath, and pallor. Patient has a history significant for paroxysmal atrial fibrillation and had been on Xarelto until 2 months ago when it was discontinued. The patient repor ts that he was found to have low blood pressure after having 5 syncopal episodes and attributes to the discontinuation of the Xarelto to his low blood pressure. Patient is managed by a doctor through [facility]. He denies any chest pain, fever or chills, headache or body aches. Again he presented with pallor and diaphoresis with a blood pressure of 100/70 and a heart rate of 190 bpm. Patient is in atrial fibrillation with a rapid ventricular response. Initially we treated this with a IV bolus of diltiazem 20 mg which did bring him down into the 120s, however, he rebounded back up into the 160s - 170s and therefore we started him on a diltiazem drip. In addition to the diltiazem, the patient did receive several 1 L boluses of normal saline due to the soft blood pressure. This did improve his vital significantly. He is on maintenance normal saline at 75 mL/h. We have slowly been titrating him up and his blood pressure has been stable. Initial labs show an elevation of his TSH at 4.59 with a low free T4 at 0.74 consistent with hypothyroidism. He is not currently on any thyroid replacement therapy. This may be the nidus for his recurrent atrial fibrillation and will likely need to be addressed. The patient's initial troponin is negative. His D-dimer is significantly elevated at 927. The patient's hemoglobin is 11.3. His creatinine is 1.3 with a corrected calcium of 8.6. The remainder of his CBC and comprehensive metabolic panel are unremarkable. Urinalysis and urine drug screen were both negative. Currently the patient's heart rate is between 101 - 120 bpm. His blood pressure is 123/83. He is resting comfortably. We did initiate anticoagulation with Lovenox 1 mg/kg subcutaneous. His Covid 19 test is currently pending. We will likely arrange admission of the patient to [facility] for further evaluation and care. [facility] did not have any bed availability. We currently do not have an ICU bed available to continue running the diltiazem drip here. 06/15/20 00:39 I discussed the case with Dr. Gusman, hospitalist at [facility] who accepts the patient in transfer for admission and further care. We will get the CT angiogram of the chest to evaluate for possible pulmonary embolism before transferring. 06/15/20 01:00 the patient's Covid test is negative. 06/15/20 01:38 CT angiogram of the chest: There is no evidence for acute intravascular thrombus formation. No evidence for pulmonary embolism. Heart size is normal. Thoracic aorta and pulmonary artery are normal in caliber. Mild coronary atherosclerosis. No pericardial effusion. Lungs and pleura: No pleural effusions or pneumothorax. Trace nodularity along the left major fissure likely scarring. Minimal dependent atelectasis in the right lower lobe. Lymph nodes/mediastinum: Subcentimeter mediastinal lymph nodes. Chest wall no masses. The upper abdomen status post gastric bypass. Bones unremarkable for age. [facility] updated on the information of the CT angiogram. Departure - Departure Time of Disposition: :53 Disposition: DC/Tfer to [facility] 02 Reason for Transfer *Q: Other (No ICU beds available here at this time to manage the IV diltiazem.) Condition: Good Clinical Impression: Atrial fibrillation with rapid ventricular response, Near syncope Hypothyroidism Qualifiers: Hypothyroidism type: unspecified Qualified Code(s): E03.9 - Hypothyroidism, unspecified Referrals: PCP,None [Primary Care Provider] - Forms: ED Department Discharge Care Plan Goals: Patient will be transferring to [facility] for further evaluation and care. Sepsis Event Note (ED) - Evaluation Sepsis Screening Result: No Definite Risk - Focused Exam Vital Signs: Vital Signs Temp Pulse Resp BP Pulse Ox 06/15/20 01:34 36.3 C 103 H 9 L 120/87 98 06/15/20 00:53 36.4 C 107 H 13 135/89 98 06/15/20 00:23 122 H 11 L 131/84 96 06/15/20 00:08 100 18 123/83 97 06/14/20 23:53 116 H 11 L 129/90 96 06/14/20 23:39 176 H 9 L 108/88 98 06/14/20 23:30 104 H 9 L 122/84 98 06/14/20 23:00 192 H 9 L 109/68 98 06/14/20 22:24 111 H 10 L 138/95 H 96 06/14/20 21:51 109 H 13 145/94 H 97 06/14/20 21:03 104 H 12 118/73 100 06/14/20 20:44 36.3 C 180 H 20 100/52 L 97 06/14/20 20:43 36.3 C 180 H 20 100/52 L 97 - My Orders Last 24 Hours: My Active Orders 06/14/20 20:45 Sodium Chloride 0.9% [Saline Flush] 10 ml FLUSH ASDIRECTED PRN Saline Lock Insert [OM.PC] Routine 06/14/20 22:00 Diltiazem [Cardizem] 100 mg Sodium Chloride 0.9% [Normal Saline] 100 ml IV TITRATE Sodium Chloride 0.9% [Normal Saline] 1,000 ml IV ASDIRECTED 06/14/20 23:45 Sodium Chloride 0.9% [Normal Saline] 1,000 ml IV ASDIRECTED - Assessment/Plan Last 24 Hours: My Active Orders 06/14/20 20:45 Sodium Chloride 0.9% [Saline Flush] 10 ml FLUSH ASDIRECTED PRN Saline Lock Insert [OM.PC] Routine 06/14/20 22:00 Diltiazem [Cardizem] 100 mg Sodium Chloride 0.9% [Normal Saline] 100 ml IV TITRATE Sodium Chloride 0.9% [Normal Saline] 1,000 ml IV ASDIRECTED 06/14/20 23:45 Sodium Chloride 0.9% [Normal Saline] 1,000 ml IV ASDIRECTED
[2020-06-15] MEDS ORDERED: Iopamidol 755 Mg/ML 100 ML Bottle IV STA (01:02)
[2020-06-15] MEDS ORDERED: Sodium Chloride 0.9% 100 ML IV STA (01:02)
[2020-06-15 01:35] VITALS: BP 120/87; PULSE 103
--- NOTE | 2020-06-15 01:50 | CRLCT ---
INDICATION: New atrial fibrillation and elevated D-dimer. TECHNIQUE: CT chest PE was acquired with 100 cc Isovue 370 contrast. COMPARISON: None. FINDINGS: Heart and vasculature: Contrast opacification of the pulmonary arterial tree is adequate. No sign of pulmonary embolism. Heart size is normal. Thoracic aorta and pulmonary artery are normal in caliber.Mild coronary atherosclerosis. No pericardial effusion. Lungs and pleural: No pleural effusion or pneumothorax. Trace nodularity along the left major fissure, likely scarring. Minimal dependent atelectasis right lower lobe. Lymph nodes/mediastinum: Subcentimeter mediastinal lymph nodes. Chest wall: No masses. Upper abdomen: Status post gastric bypass. Bones: Unremarkable for age. IMPRESSION: Essentially unremarkable CTA chest. No evidence of pulmonary embolus. Please note that all CT scans at this facility use dose modulation, iterative reconstruction, and/or weight-based dosing when appropriate to reduce radiation dose to as low as reasonably achievable. Dictated by Stu Mendes MD @ Jun 15 2020 1:40AM Signed by Dr. Stu Mendes @ Jun 15 2020 1:48AM
== END 2020-06-15 02:52 ==
LOC: JP.ED 20:21
DX: I48.91 Unspecified atrial fibrillation (principal); R55 Syncope and collapse; I10 Essential (primary) hypertension; E66.9 Obesity, unspecified; Z68.30 Body mass index [BMI] 30.0-30.9, adult; Z20.828 Contact with and (suspected) exposure to other viral communicable diseases
CPT/HCPCS: 36415; 71275; 80053; 80305; 81001; 84145; 84439; 84443; 84484; 85025; 85379; 85610; 85730; 86140; 87635; 96365; 96366; 96372; 96376; 99285; A9270; J1650; J3490; J7030; J7050; Q9967; 93010; U0002

== ENCOUNTER 2020-12-28 20:16 | Observation (INO) | payer BC, OTHER, SELFPAY ==
[2020-12-28] MEDS ORDERED: Ondansetron 4 MG/2 ML SDV IVPUSH ONE (20:38)
[2020-12-28] MEDS ORDERED: Sodium Chloride 0.9% 10 ML Syringe FLUSH PRN (20:38)
[2020-12-28] MEDS ORDERED: Lactated Ringers 1,000 ML IV ONE ×2 (20:38→22:04)
--- NOTE | 2020-12-28 20:43 | EDM.PDOC ---
ED HPI GENERAL MEDICAL PROBLEM - General Chief Complaint: General Stated Complaint: MED[facility] Time Seen by Provider: 12/28/20 20:33 Source of Information: Reports: Patient, EMS, RN Notes Reviewed History Limitations: Reports: No Limitations - History of Present Illness INITIAL COMMENTS - FREE TEXT/NARRATIVE: 55-year-old gentleman presents emergency department day complaint of weakness, he has known history of gastric bypass he states of the last 3 days he had had a poor oral intake felt nauseated no diarrhea no shortness of breath or chest pain no fevers denies pain Pain Score (Numeric/FACES): 0 - Related Data Allergies Allergy/AdvReac Type Severity Reaction Status Date / Time No Known Allergies Allergy Verified 12/28/20 20:21 Home Meds: Home Meds Acetaminophen [Tylenol] 650 mg PO Q6H PRN 12/28/20 [History] Citalopram Hydrobromide [Celexa] 40 mg PO DAILY 12/28/20 [History] Digoxin 125 mcg PO DAILY 12/28/20 [History] Flecainide [Tambocor] 50 mg PO BID 12/28/20 [History] Folic Acid 1 mg PO DAILY 12/28/20 [History] Niacin 500 mg PO ASDIRECTED 12/28/20 [History] Pantoprazole Sodium [Protonix] 40 mg PO DAILY 12/28/20 [History] Papaya [Papaya Enzyme] 4 tab PO ASDIRECTED PRN 12/28/20 [History] Past Medical History HEENT History: Reports: Impaired Vision Other HEENT History: wears glasses Cardiovascular History: Reports: Afib, High Cholesterol, Hypertension, Other (See Below) Other Cardiovascular History: paroxysmal atrial fibrillation. blood clot left leg Respiratory History: Reports: Sleep Apnea, Other (See Below) Other Respiratory History: cpap at home Gastrointestinal History: Reports: GERD, GI Bleed, Other (See Below) Other Gastrointestinal History: ulcers Musculoskeletal History: Reports: Gout Psychiatric History: Reports: Anxiety, Depression Endocrine/Metabolic History: Reports: Obesity/BMI 30+, Vitamin D Deficiency Hematologic History: Reports: B12 Deficiency, Iron Deficiency Dermatologic History: Reports: Other (See Below) Other Dermatologic History: vericos veins removed bilateral legs - Infectious Disease History Infectious Disease History: Reports: Chicken Pox - Past Surgical History Cardiovascular Surgical History: Reports: Other (See Below) Other Cardiovascular Surgeries/Procedures: ECHO GI Surgical History: Reports: Bariatric Procedure, Colonoscopy, EGD, Damari Fundoplication, Small Bowel, Other (See Below) Other GI Surgeries/Procedures: surgery for acid reflux. 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 left achilles tendon lengthened Social & Family History - Family History Family Medical History: No Pertinent Family History Cardiac: Reports: CAD, Hypertension Endocrine/Metabolic: Reports: Diabetes, type II - Caffeine Use Caffeine Use: Reports: Coffee Other Caffeine Use: occasional coffee very rare others Caffeine Use Comment: Rare cup of coffee - Alcohol Use Days Per Week of Alcohol Use: 4 Number of Drinks Per Day: 3 Total Drinks Per Week: 12 Date of Last Drink: 12/28/20 - Recreational Drug Use Recreational Drug Use: No ED ROS GENERAL - Review of Systems Review Of Systems: See Below Constitutional: Reports: Weakness, Fatigue HEENT: Reports: No Symptoms Respiratory: Reports: No Symptoms Cardiovascular: Reports: No Symptoms GI/Abdominal: Reports: Nausea. Denies: Abdominal Pain, Vomiting : Reports: No Symptoms Musculoskeletal: Reports: No Symptoms ED EXAM, GENERAL - Physical Exam Exam: See Below Exam Limited By: No Limitations General Appearance: Alert, WD/WN, No Apparent Distress Respiratory/Chest: No Respiratory Distress, Lungs Clear, Normal Breath Sounds, No Accessory Muscle Use, Chest Non-Tender Cardiovascular: Regular Rate, Rhythm, No Murmur GI/Abdominal: Soft, Non-Tender Course - Vital Signs Last Recorded V/S: Last Vital Signs Temp 98 F 12/28/20 20:22 Pulse 72 12/28/20 22:44 Resp 13 12/28/20 22:44 BP 137/81 12/28/20 22:44 Pulse Ox 99 12/28/20 22:44 - Orders/Labs/Meds Orders: Active Orders 24 hr Category Date Time Status Peripheral IV Care [RC] . DIRECTED Care 12/28/20 20:38 Active Sodium Chloride 0.9% [Saline Flush] Med 12/28/20 20:38 Active 10 ml FLUSH ASDIRECTED PRN Peripheral IV Insertion Adult [OM.PC] Urgent Oth 12/28/20 20:38 Ordered Medication Orders Sodium Chloride (Sodium Chloride 0.9% 10 Ml Syringe) 10 ml FLUSH ASDIRECTED PRN PRN Reason: Keep Vein Open Last Admin: 12/28/20 21:05 Dose: 10 ml Documented by: RAINER Labs: Laboratory Tests 12/28/20 12/28/20 12/28/20 Range/Units 20:53 20:57 20:57 WBC 3.8 L (4.5-11.0) K/uL RBC 3.85 L (4.30-5.90) M/uL Hgb 10.8 L (12.0-15.0) g/dL Hct 33.0 L (40.0-54.0) % MCV 86 (80-98) fL MCH 28 (27-31) pg MCHC 33 (32-36) % Plt Count 94 L (150-400) K/uL Neut % (Auto) 68.5 H (36-66) % Lymph % (Auto) 21.7 L (24-44) % [place] % (Auto) 7.4 H (2-6) % Eos % (Auto) 0.8 L (2-4) % Baso % (Auto) 1.6 H (0-1) % Sodium 145 (140-148) mmol/L Potassium 4.2 (3.6-5.2) mmol/L Chloride 107 (100-108) mmol/L Carbon Dioxide 25 (21-32) mmol/L Anion Gap 12.6 (5.0-14.0) mmol/L BUN 7 (7-18) mg/dL Creatinine 0.9 (0.8-1.3) mg/dL Est Cr Clr Drug Dosing 106.56 mL/min Estimated GFR (MDRD) > 60 (>60) Glucose 65 L (74-106) mg/dL Lactic Acid (0.4-2.0) mmol/L Calcium 7.8 L (8.5-10.1) mg/dL Total Bilirubin 0.7 (0.2-1.0) mg/dL AST 220 H D (15-37) U/L ALT 108 H (12-78) U/L Alkaline Phosphatase 157 H (46-116) U/L NT-Pro-B Natriuret Pep (5-125) pg/mL Total Protein 4.8 L (6.4-8.2) g/dL Albumin 1.3 L (3.4-5.0) g/dL Globulin 3.5 (2.3-3.5) g/dL Albumin/Globulin Ratio 0.4 L (1.2-2.2) Procalcitonin < 0.05 ng/mL TSH, Ultra Sensitive 1.484 (0.358-3.740) uIU/mL Urine Color (YELLOW) Urine Appearance (CLEAR) Urine pH (5.0-8.0) Ur Specific [place] (1.008-1.030) Urine Protein (NEGATIVE) mg/dL Urine Glucose (UA) (NEGATIVE) mg/dL Urine Ketones (NEGATIVE) mg/dL Urine Occult Blood (NEGATIVE) Urine Nitrite (NEGATIVE) Urine Bilirubin (NEGATIVE) Urine Urobilinogen (0.2-1.0) EU/dL Ur Leukocyte Esterase (NEGATIVE) Urine RBC (0-5) Urine WBC (0-5) Ur Epithelial Cells Amorphous Sediment Urine Bacteria Urine Mucus Digoxin 0.62 L (0.90-2.00) ng/mL Ethyl Alcohol mg/dL SARS CoV-2 RNA Rapid EDD 12/28/20 12/28/20 12/28/20 Range/Units 20:57 20:57 21:39 WBC (4.5-11.0) K/uL RBC (4.30-5.90) M/uL Hgb (12.0-15.0) g/dL Hct (40.0-54.0) % MCV (80-98) fL MCH (27-31) pg MCHC (32-36) % Plt Count (150-400) K/uL Neut % (Auto) (36-66) % Lymph % (Auto) (24-44) % [place] % (Auto) (2-6) % Eos % (Auto) (2-4) % Baso % (Auto) (0-1) % Sodium (140-148) mmol/L Potassium (3.6-5.2) mmol/L Chloride (100-108) mmol/L Carbon Dioxide (21-32) mmol/L Anion Gap (5.0-14.0) mmol/L BUN (7-18) mg/dL Creatinine (0.8-1.3) mg/dL Est Cr Clr Drug Dosing mL/min Estimated GFR (MDRD) (>60) Glucose (74-106) mg/dL Lactic Acid 5.2 H (0.4-2.0) mmol/L Calcium (8.5-10.1) mg/dL Total Bilirubin (0.2-1.0) mg/dL AST (15-37) U/L ALT (12-78) U/L Alkaline Phosphatase (46-116) U/L NT-Pro-B Natriuret Pep (5-125) pg/mL Total Protein (6.4-8.2) g/dL Albumin (3.4-5.0) g/dL Globulin (2.3-3.5) g/dL Albumin/Globulin Ratio (1.2-2.2) Procalcitonin ng/mL TSH, Ultra Sensitive (0.358-3.740) uIU/mL Urine Color (YELLOW) Urine Appearance (CLEAR) Urine pH (5.0-8.0) Ur Specific [place] (1.008-1.030) Urine Protein (NEGATIVE) mg/dL Urine Glucose (UA) (NEGATIVE) mg/dL Urine Ketones (NEGATIVE) mg/dL Urine Occult Blood (NEGATIVE) Urine Nitrite (NEGATIVE) Urine Bilirubin (NEGATIVE) Urine Urobilinogen (0.2-1.0) EU/dL Ur Leukocyte Esterase (NEGATIVE) Urine RBC (0-5) Urine WBC (0-5) Ur Epithelial Cells Amorphous Sediment Urine Bacteria Urine Mucus Digoxin (0.90-2.00) ng/mL Ethyl Alcohol 12 mg/dL SARS CoV-2 RNA Rapid EDD Negative 12/28/20 12/28/20 Range/Units 22:04 22:24 WBC (4.5-11.0) K/uL RBC (4.30-5.90) M/uL Hgb (12.0-15.0) g/dL Hct (40.0-54.0) % MCV (80-98) fL MCH (27-31) pg MCHC (32-36) % Plt Count (150-400) K/uL Neut % (Auto) (36-66) % Lymph % (Auto) (24-44) % [place] % (Auto) (2-6) % Eos % (Auto) (2-4) % Baso % (Auto) (0-1) % Sodium (140-148) mmol/L Potassium (3.6-5.2) mmol/L Chloride (100-108) mmol/L Carbon Dioxide (21-32) mmol/L Anion Gap (5.0-14.0) mmol/L BUN (7-18) mg/dL Creatinine (0.8-1.3) mg/dL Est Cr Clr Drug Dosing mL/min Estimated GFR (MDRD) (>60) Glucose (74-106) mg/dL Lactic Acid (0.4-2.0) mmol/L Calcium (8.5-10.1) mg/dL Total Bilirubin (0.2-1.0) mg/dL AST (15-37) U/L ALT (12-78) U/L Alkaline Phosphatase (46-116) U/L NT-Pro-B Natriuret Pep 1270 H (5-125) pg/mL Total Protein (6.4-8.2) g/dL Albumin (3.4-5.0) g/dL Globulin (2.3-3.5) g/dL Albumin/Globulin Ratio (1.2-2.2) Procalcitonin ng/mL TSH, Ultra Sensitive (0.358-3.740) uIU/mL Urine Color Yellow (YELLOW) Urine Appearance Clear (CLEAR) Urine pH 6.0 (5.0-8.0) Ur Specific [place] 1.025 (1.008-1.030) Urine Protein Negative (NEGATIVE) mg/dL Urine Glucose (UA) Negative (NEGATIVE) mg/dL Urine Ketones Negative (NEGATIVE) mg/dL Urine Occult Blood Small H (NEGATIVE) Urine Nitrite Negative (NEGATIVE) Urine Bilirubin Negative (NEGATIVE) Urine Urobilinogen 0.2 (0.2-1.0) EU/dL Ur Leukocyte Esterase Negative (NEGATIVE) Urine RBC 5-10 H (0-5) Urine WBC Not seen (0-5) Ur Epithelial Cells Not seen Amorphous Sediment Not seen Urine Bacteria Not seen Urine Mucus Moderate Digoxin (0.90-2.00) ng/mL Ethyl Alcohol mg/dL SARS CoV-2 RNA Rapid EDD Meds: Medications Generic Name Dose Route Start Last Admin Trade Name Freq PRN Reason Stop Dose Admin Sodium Chloride 10 ml 12/28/20 20:38 12/28/20 21:05 Sodium Chloride 0.9% 10 Ml Syringe FLUSH 10 ml ASDIRECTED PRN Administration Keep Vein Open Discontinued Medications Generic Name Dose Route Start Last Admin Trade Name Freq PRN Reason Stop Dose Admin Lactated Ringer's 1,000 mls @ 999 mls/hr 12/28/20 20:38 12/28/20 20:59 Ringers, Lactated IV 12/28/20 21:38 999 mls/hr BOLUS ONE Administration Lactated Ringer's 1,000 mls @ 999 mls/hr 12/28/20 22:04 12/28/20 22:43 Ringers, Lactated IV 12/28/20 23:04 999 mls/hr BOLUS ONE Administration Ondansetron HCl 4 mg 12/28/20 20:38 12/28/20 20:59 Ondansetron 4 Mg/2 Ml Sdv IVPUSH 12/28/20 20:39 4 mg ONETIME ONE Administration Prochlorperazine Edisylate 5 mg 12/28/20 22:50 12/28/20 23:45 Prochlorperazine 10 Mg/2 Ml Sdv IVPUSH 12/28/20 22:51 5 mg ONETIME ONE Administration Departure - Departure Time of Disposition: 00:11 Disposition: Refer to Observation Condition: Fair Clinical Impression: Weakness - Discharge Information Referrals: PCP,None [Primary Care Provider] - Forms: ED Department Discharge Sepsis Event Note (ED) - Evaluation Sepsis Screening Result: No Definite Risk - Focused Exam Vital Signs: Vital Signs Temp Pulse Resp BP Pulse Ox 12/28/20 22:44 72 13 137/81 99 12/28/20 22:13 72 14 142/88 H 100 12/28/20 20:40 71 13 137/87 98 12/28/20 20:22 98 F 72 18 137/89 96 12/28/20 20:17 98 F 72 18 137/89 96 - My Orders Last 24 Hours: My Active Orders 12/28/20 20:38 Peripheral IV Care [RC] . DIRECTED Sodium Chloride 0.9% [Saline Flush] 10 ml FLUSH ASDIRECTED PRN Peripheral IV Insertion Adult [OM.PC] Urgent - Assessment/Plan Last 24 Hours: My Active Orders 12/28/20 20:38 Peripheral IV Care [RC] . DIRECTED Sodium Chloride 0.9% [Saline Flush] 10 ml FLUSH ASDIRECTED PRN Peripheral IV Insertion Adult [OM.PC] Urgent Plan: Assessment Acuity = acute Site and laterality = weakness complicated in a patient with known history of gastric bypass Etiology = unknown Manifestations = dizzy Location of injury = Home Lab values = WBC low at 3.8 consistent leukopenia, hemoglobin low 10.8 consistent with normochromic anemia lactic acid elevated 5.2 consistent lactic acidosis calcium low at 7.8 consistent with hypocalcemia AST at 220 ALT 108 consistent with elevated liver enzymes BNP elevated 1270 consistent with a fluid overload type pattern procalcitonin was negative thyroid normal 1.4 digoxin low at 0.62 subtherapeutic alcohol 1 to Covid was negative Plan Call discussed case with hospitalist on-call, agreed to come evaluate patient at midnight This note was dictated using [email or web address] voice recognition software please call with any questions on syntax or grammar.
[2020-12-28] MEDS ORDERED: Prochlorperazine 10 MG/2 ML SDV IVPUSH ONE (22:50)
--- NOTE | 2020-12-29 00:44 | PCM.HP.2 ---
H&P History of Present Illness - General Date of Service: 12/28/20 Admit Problem/Dx: Admission Diagnosis/Problem Admission Diagnosis/Problem Weakness Source of Information: Patient, Provider, RN History Limitations: Reports: No Limitations - History of Present Illness Initial Comments - Free Text/Narative: chief complaint: weakness 55-year-old gentleman presents emergency department day complaint of weakness, he has known history of gastric bypass he states of the last 3 days he had had a poor oral intake - last meal yesterday. felt nauseated, vomited a few times. no diarrhea no shortness of breath or chest pain no fevers, no abdominal pain. 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 [employer] Onset of Symptoms: Reports: Gradual Symptom Onset Date: 12/26/20 Duration of Symptoms: Reports: Day(s):, Waxing/Waning Location: Reports: Generalized Severity: Moderate Improves with: Reports: None Worsens with: Reports: None Associated Symptoms: Reports: Fever/Chills (chills without fever), Loss of Appetite, Malaise, Nausea/Vomiting, Weakness denies pain Pain Score (Numeric/FACES): 0 - Related Data Allergies/Adverse Reactions: Allergies Allergy/AdvReac Type Severity Reaction Status Date / Time No Known Allergies Allergy Verified 12/28/20 20:21 Home Medications: Home Meds Acetaminophen [Tylenol] 650 mg PO Q6H PRN 12/28/20 [History] Citalopram Hydrobromide [Celexa] 40 mg PO DAILY 12/28/20 [History] Digoxin 125 mcg PO DAILY 12/28/20 [History] Flecainide [Tambocor] 50 mg PO BID 12/28/20 [History] Folic Acid 1 mg PO DAILY 12/28/20 [History] Niacin 500 mg PO ASDIRECTED 12/28/20 [History] Pantoprazole Sodium [Protonix] 40 mg PO DAILY 12/28/20 [History] Papaya [Papaya Enzyme] 4 tab PO ASDIRECTED PRN 12/28/20 [History] Past Medical History HEENT History: Reports: Impaired Vision Other HEENT History: wears glasses Cardiovascular History: Reports: Afib, High Cholesterol, Hypertension, Other (See Below) Other Cardiovascular History: paroxysmal atrial fibrillation. blood clot left leg Respiratory History: Reports: Sleep Apnea, Other (See Below) Other Respiratory History: cpap at home Gastrointestinal History: Reports: GERD, GI Bleed, Other (See Below) Other Gastrointestinal History: ulcers Genitourinary History: Reports: None Musculoskeletal History: Reports: Gout Psychiatric History: Reports: Anxiety, Depression Endocrine/Metabolic History: Reports: Obesity/BMI 30+, Vitamin D Deficiency Hematologic History: Reports: B12 Deficiency, Iron Deficiency Dermatologic History: Reports: Other (See Below) Other Dermatologic History: vericos veins removed bilateral legs - Infectious Disease History Infectious Disease History: Reports: Chicken Pox - Past Surgical History Cardiovascular Surgical History: Reports: Other (See Below) Other Cardiovascular Surgeries/Procedures: ECHO GI Surgical History: Reports: Bariatric Procedure, Colonoscopy, EGD, Damari Fundoplication, Small Bowel, Other (See Below) Other GI Surgeries/Procedures: surgery for acid reflux. 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 left achilles tendon lengthened Social & Family History - Family History Family Medical History: No Pertinent Family History Cardiac: Reports: CAD, Hypertension Endocrine/Metabolic: Reports: Diabetes, type II - Caffeine Use Caffeine Use: Reports: Coffee Other Caffeine Use: occasional coffee very rare others Caffeine Use Comment: Rare cup of coffee - Alcohol Use Days Per Week of Alcohol Use: 4 Number of Drinks Per Day: 3 Total Drinks Per Week: 12 Date of Last Drink: 12/28/20 - Recreational Drug Use Recreational Drug Use: No - Living Situation & Occupation Living situation: Reports: Single, Alone Occupation: Employed (lives alone in [facility], 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.) H&P Review of Systems - Review of Systems: Review Of Systems: See Below General: Reports: Chills, Malaise, Weakness, Fatigue, Decreased Appetite HEENT: Reports: Glasses Pulmonary: Reports: No Symptoms Cardiovascular: Reports: No Symptoms Gastrointestinal: Reports: Decreased Appetite, Nausea, Vomiting Genitourinary: Reports: No Symptoms Musculoskeletal: Reports: No Symptoms Skin: Reports: Pallor (Primary Care is evaluating for anemia and vitamin def.), Bruising (bilateral forearms.) Psychiatric: Reports: No Symptoms Neurological: Reports: Weakness Hematologic/Lymphatic: Reports: Anemia, Easy Bleeding, Easy Bruising Immunologic: Reports: No Symptoms Exam - Exam Exam: See Below - Vital Signs Vital Signs: Last Vital Signs Temp 98 F 12/28/20 20:22 Pulse 72 12/28/20 22:44 Resp 13 12/28/20 22:44 BP 137/81 12/28/20 22:44 Pulse Ox 99 12/28/20 22:44 Weight: 210 lb - Exam Quality Assessment: DVT Prophylaxis General: Alert, Oriented, Cooperative, Other (no distress) HEENT: PERRLA, Conjunctiva Clear, EACs Clear, EOMI, Hearing Intact, Mucosa Moist & [place], Nares Patent, Normal Nasal Septum, Posterior Pharynx Clear, Glasses Neck: Supple, Trachea Midline, 2 Lungs: Clear to Auscultation, Normal Respiratory Effort Cardiovascular: Regular Rate GI/Abdominal Exam: Normal Bowel Sounds, Soft, Non-Tender, No Organomegaly, No Distention, No Abnormal Bruit, No Mass (Male) Exam: Deferred Rectal (Males) Exam: Deferred Back Exam: Normal Inspection, Full Range of Motion, NT Extremities: Normal Range of Motion, Non-Tender, Normal Capillary Refill, Pedal Edema (1+) Peripheral Pulses: 2+: Radial (L), Radial (R) Skin: Warm, Dry, Intact, Ecchymosis (bilateral forearms) Neurological: Strength Equal Bilateral, Normal Speech, Normal Tone Neuro Extensive - Mental Status: Alert, Oriented x3, Normal Mood/Affect, Normal Cognition Psychiatric: Alert, Normal Affect, Normal Mood - Patient Data Lab Results Last 24 hrs: Laboratory Results - last 24 hr 12/28/20 12/28/20 12/28/20 Range/Units 20:53 20:57 20:57 WBC 3.8 L (4.5-11.0) K/uL RBC 3.85 L (4.30-5.90) M/uL Hgb 10.8 L (12.0-15.0) g/dL Hct 33.0 L (40.0-54.0) % MCV 86 (80-98) fL MCH 28 (27-31) pg MCHC 33 (32-36) % Plt Count 94 L (150-400) K/uL Neut % (Auto) 68.5 H (36-66) % Lymph % (Auto) 21.7 L (24-44) % [place] % (Auto) 7.4 H (2-6) % Eos % (Auto) 0.8 L (2-4) % Baso % (Auto) 1.6 H (0-1) % Sodium 145 (140-148) mmol/L Potassium 4.2 (3.6-5.2) mmol/L Chloride 107 (100-108) mmol/L Carbon Dioxide 25 (21-32) mmol/L Anion Gap 12.6 (5.0-14.0) mmol/L BUN 7 (7-18) mg/dL Creatinine 0.9 (0.8-1.3) mg/dL Est Cr Clr Drug Dosing 106.56 mL/min Estimated GFR (MDRD) > 60 (>60) Glucose 65 L (74-106) mg/dL Lactic Acid (0.4-2.0) mmol/L Calcium 7.8 L (8.5-10.1) mg/dL Total Bilirubin 0.7 (0.2-1.0) mg/dL AST 220 H D (15-37) U/L ALT 108 H (12-78) U/L Alkaline Phosphatase 157 H (46-116) U/L NT-Pro-B Natriuret Pep (5-125) pg/mL Total Protein 4.8 L (6.4-8.2) g/dL Albumin 1.3 L (3.4-5.0) g/dL Globulin 3.5 (2.3-3.5) g/dL Albumin/Globulin Ratio 0.4 L (1.2-2.2) Procalcitonin < 0.05 ng/mL TSH, Ultra Sensitive 1.484 (0.358-3.740) uIU/mL Urine Color (YELLOW) Urine Appearance (CLEAR) Urine pH (5.0-8.0) Ur Specific [place] (1.008-1.030) Urine Protein (NEGATIVE) mg/dL Urine Glucose (UA) (NEGATIVE) mg/dL Urine Ketones (NEGATIVE) mg/dL Urine Occult Blood (NEGATIVE) Urine Nitrite (NEGATIVE) Urine Bilirubin (NEGATIVE) Urine Urobilinogen (0.2-1.0) EU/dL Ur Leukocyte Esterase (NEGATIVE) Urine RBC (0-5) Urine WBC (0-5) Ur Epithelial Cells Amorphous Sediment Urine Bacteria Urine Mucus Digoxin 0.62 L (0.90-2.00) ng/mL Ethyl Alcohol mg/dL SARS CoV-2 RNA Rapid EDD 12/28/20 12/28/20 12/28/20 Range/Units 20:57 20:57 21:39 WBC (4.5-11.0) K/uL RBC (4.30-5.90) M/uL Hgb (12.0-15.0) g/dL Hct (40.0-54.0) % MCV (80-98) fL MCH (27-31) pg MCHC (32-36) % Plt Count (150-400) K/uL Neut % (Auto) (36-66) % Lymph % (Auto) (24-44) % [place] % (Auto) (2-6) % Eos % (Auto) (2-4) % Baso % (Auto) (0-1) % Sodium (140-148) mmol/L Potassium (3.6-5.2) mmol/L Chloride (100-108) mmol/L Carbon Dioxide (21-32) mmol/L Anion Gap (5.0-14.0) mmol/L BUN (7-18) mg/dL Creatinine (0.8-1.3) mg/dL Est Cr Clr Drug Dosing mL/min Estimated GFR (MDRD) (>60) Glucose (74-106) mg/dL Lactic Acid 5.2 H (0.4-2.0) mmol/L Calcium (8.5-10.1) mg/dL Total Bilirubin (0.2-1.0) mg/dL AST (15-37) U/L ALT (12-78) U/L Alkaline Phosphatase (46-116) U/L NT-Pro-B Natriuret Pep (5-125) pg/mL Total Protein (6.4-8.2) g/dL Albumin (3.4-5.0) g/dL Globulin (2.3-3.5) g/dL Albumin/Globulin Ratio (1.2-2.2) Procalcitonin ng/mL TSH, Ultra Sensitive (0.358-3.740) uIU/mL Urine Color (YELLOW) Urine Appearance (CLEAR) Urine pH (5.0-8.0) Ur Specific [place] (1.008-1.030) Urine Protein (NEGATIVE) mg/dL Urine Glucose (UA) (NEGATIVE) mg/dL Urine Ketones (NEGATIVE) mg/dL Urine Occult Blood (NEGATIVE) Urine Nitrite (NEGATIVE) Urine Bilirubin (NEGATIVE) Urine Urobilinogen (0.2-1.0) EU/dL Ur Leukocyte Esterase (NEGATIVE) Urine RBC (0-5) Urine WBC (0-5) Ur Epithelial Cells Amorphous Sediment Urine Bacteria Urine Mucus Digoxin (0.90-2.00) ng/mL Ethyl Alcohol 12 mg/dL SARS CoV-2 RNA Rapid EDD Negative 12/28/20 12/28/20 Range/Units 22:04 22:24 WBC (4.5-11.0) K/uL RBC (4.30-5.90) M/uL Hgb (12.0-15.0) g/dL Hct (40.0-54.0) % MCV (80-98) fL MCH (27-31) pg MCHC (32-36) % Plt Count (150-400) K/uL Neut % (Auto) (36-66) % Lymph % (Auto) (24-44) % [place] % (Auto) (2-6) % Eos % (Auto) (2-4) % Baso % (Auto) (0-1) % Sodium (140-148) mmol/L Potassium (3.6-5.2) mmol/L Chloride (100-108) mmol/L Carbon Dioxide (21-32) mmol/L Anion Gap (5.0-14.0) mmol/L BUN (7-18) mg/dL Creatinine (0.8-1.3) mg/dL Est Cr Clr Drug Dosing mL/min Estimated GFR (MDRD) (>60) Glucose (74-106) mg/dL Lactic Acid (0.4-2.0) mmol/L Calcium (8.5-10.1) mg/dL Total Bilirubin (0.2-1.0) mg/dL AST (15-37) U/L ALT (12-78) U/L Alkaline Phosphatase (46-116) U/L NT-Pro-B Natriuret Pep 1270 H (5-125) pg/mL Total Protein (6.4-8.2) g/dL Albumin (3.4-5.0) g/dL Globulin (2.3-3.5) g/dL Albumin/Globulin Ratio (1.2-2.2) Procalcitonin ng/mL TSH, Ultra Sensitive (0.358-3.740) uIU/mL Urine Color Yellow (YELLOW) Urine Appearance Clear (CLEAR) Urine pH 6.0 (5.0-8.0) Ur Specific [place] 1.025 (1.008-1.030) Urine Protein Negative (NEGATIVE) mg/dL Urine Glucose (UA) Negative (NEGATIVE) mg/dL Urine Ketones Negative (NEGATIVE) mg/dL Urine Occult Blood Small H (NEGATIVE) Urine Nitrite Negative (NEGATIVE) Urine Bilirubin Negative (NEGATIVE) Urine Urobilinogen 0.2 (0.2-1.0) EU/dL Ur Leukocyte Esterase Negative (NEGATIVE) Urine RBC 5-10 H (0-5) Urine WBC Not seen (0-5) Ur Epithelial Cells Not seen Amorphous Sediment Not seen Urine Bacteria Not seen Urine Mucus Moderate Digoxin (0.90-2.00) ng/mL Ethyl Alcohol mg/dL SARS CoV-2 RNA Rapid EDD Result Diagrams: 12/28/20 20:57 12/28/20 20:57 Sepsis Event Note - Evaluation Sepsis Screening Result: No Definite Risk - Focused Exam Vital Signs: Vital Signs Temp Pulse Resp BP Pulse Ox 12/28/20 22:44 72 13 137/81 99 12/28/20 22:13 72 14 142/88 H 100 12/28/20 20:40 71 13 137/87 98 12/28/20 20:22 98 F 72 18 137/89 96 12/28/20 20:17 98 F 72 18 137/89 96 - Problem List (1) Weakness SNOMED Code(s): 77880102 ICD Code: R53.1 - WEAKNESS Status: Acute Priority: High Current Visit: Yes (2) Hypothyroidism SNOMED Code(s): 19657571 ICD Code: E03.9 - HYPOTHYROIDISM, UNSPECIFIED Status: Acute Priority: Low Current Visit: Yes Qualifiers: Hypothyroidism type: unspecified Qualified Code(s): E03.9 - Hypothyroidism, unspecified (3) Status post gastric bypass for obesity SNOMED Code(s): 687376033, 197537658, 069980370, 957628012 ICD Code: Z98.84 - BARIATRIC SURGERY STATUS Status: Acute Priority: Low Current Visit: Yes (4) Essential hypertension with goal blood pressure less than 140/90 SNOMED Code(s): 80969407 ICD Code: I10 - ESSENTIAL (PRIMARY) HYPERTENSION Status: Chronic Priority: Low Current Visit: Yes (5) Generalized anxiety disorder SNOMED Code(s): 64133486 ICD Code: F41.1 - GENERALIZED ANXIETY DISORDER Status: Chronic Priority: Low Current Visit: Yes (6) History of atrial fibrillation SNOMED Code(s): 101227774 ICD Code: Z86.79 - PERSONAL HISTORY OF OTHER DISEASES OF THE CIRCULATORY SYSTEM Status: Chronic Priority: Low Current Visit: Yes Problem List Initiated/Reviewed/Updated: Yes Orders Last 24hrs: Active Orders 24 hr Category Date Time Status Patient Status Manage Transfer [TRANSFER] Routine ADT 12/29/20 00:31 Ordered Peripheral IV Care [RC] . DIRECTED Care 12/28/20 20:38 Active Sodium Chloride 0.9% [Saline Flush] Med 12/28/20 20:38 Active 10 ml FLUSH ASDIRECTED PRN Peripheral IV Insertion Adult [OM.PC] Urgent Oth 12/28/20 20:38 Ordered Resuscitation Status Routine Resus Stat 12/29/20 00:32 Ordered Medication Orders Sodium Chloride (Sodium Chloride 0.9% 10 Ml Syringe) 10 ml FLUSH ASDIRECTED PRN PRN Reason: Keep Vein Open Last Admin: 12/28/20 21:05 Dose: 10 ml Documented by: RAINER Assessment/Plan Comment:: ASSESSMENT AND PLAN - WEAKNESS - Mr. Wesley reports a 3 days history of generalized weakness, nausea, vomiting x 2, chills. Tonight called the Ambulance because was too weak and dizzy to move around his home. did have one beer this evening otherwise reports occasion alcohol use. denies any use of drugs Lab values = WBC low at 3.8 consistent leukopenia, hemoglobin low 10.8 consistent with normochromic anemia lactic acid elevated 5.2 consistent lactic acidosis calcium low at 7.8 consistent with hypocalcemia AST at 220 ALT 108 consistent with elevated liver enzymes BNP elevated 1270 consistent with a fluid overload type pattern procalcitonin was negative thyroid normal 1.4 digoxin low at 0.62 subtherapeutic alcohol 1 to Covid was negative Will admit Observation status for IV fluids, telemetry and further monitoring. -IV fluids Normal Saline 125 ml/hr overnight -telemetry -am labs CBC and BMP HYPOTHYROIDISM -TSH in ER was 1.484 HX GASTRIC BYPASS- 06/2017 with a 220 pound wt loss, follows a no sugar - low carb diet -continue outpatient medications -Folic acid 1 mg daily -Protonix 40 mg po daily HYPERTENSION -outpatient medication -monitor blood pressure GENERALIZED ANXIETY DO -Celexa 40 mg daily -Melatonin 6 mg at night for sleep. HX ATRIAL FIB. WITH RVR- Denies any chest pain or palpation at time of admission. Digoxin level in ER 0.62. report last took medication on 12/27/2020 -Digoxin 125 mcg daily -telemetry -Stress Test scheduled for next Friday Maintenance issues - -DVT prophylaxis-SCD -GI prophylaxis-PPI -Nutrition-consistent carb diet -Addison catheter-not indicated CODE STATUS -full code Admission justification - Observation-. this patient will be admitted to observation status, expect no more than a one night hospital stay for evaluation and management of problems as outlined above. Disposition -I anticipate discharge home after the hospital stay Primary care physician -Dr David Kumar, [place], [place]. Hospitalist- Omar Cooley M.D. - Mortality Measure Prognosis:: Good - Mortality Measure Prognosis:: Good
[2020-12-29] MEDS ORDERED: oxyCODONE 5 MG Tab PO PRN (01:04)
[2020-12-29] MEDS ORDERED: Ondansetron 4 MG Tab.DIS PO PRN (01:04)
[2020-12-29] MEDS ORDERED: Albuterol 0.083% 2.5 MG/3 ML Neb Soln NEB PRN (01:04)
[2020-12-29] MEDS ORDERED: PAPAYA ENZYME PO PRN (01:04)
[2020-12-29] MEDS ORDERED: Melatonin 3 MG Tab PO SCH (01:04)
[2020-12-29] MEDS ORDERED: Morphine 2 MG/ML SYRINGE IVPUSH PRN (01:04)
[2020-12-29] MEDS ORDERED: Ondansetron 4 MG/2 ML SDV IV PRN (01:04)
[2020-12-29] MEDS ORDERED: Acetaminophen Soln 650 MG/20.3 ML UD Cup PO PRN (01:04)
[2020-12-29] MEDS ORDERED: Bisacodyl 5 MG Tab PO PRN (01:04)
[2020-12-29] MEDS ORDERED: LORazepam 2 MG/ML SDV IV PRN (01:04)
[2020-12-29] MEDS ORDERED: Docusate Sodium 100 MG Cap PO PRN (01:04)
[2020-12-29] MEDS: Sodium Chloride 0.9% 1,000 ML IV SCH ×2 (02:10→10:26)
[2020-12-29] MEDS ORDERED: Pantoprazole 40 MG Tab.CR PO SCH (07:30)
[2020-12-29] MEDS ORDERED: Folic Acid 1 MG Tab PO SCH (09:00)
[2020-12-29] MEDS ORDERED: Niacin 250 MG Tab.ER PO SCH (09:00)
[2020-12-29] MEDS ORDERED: Citalopram 20 MG Tab PO SCH (09:00)
[2020-12-29] MEDS ORDERED: Flecainide 50 MG Tab PO SCH (09:00)
[2020-12-29 11:15] VITALS: BP 140/89; PULSE 100
--- NOTE | 2020-12-29 12:00 | PCM.DCSUM1 ---
Discharge Summary - Hospital Course Brief History: 55-year-old male with history of Anthony-en-Y gastric bypass surgery, persistent atrial fibrillation who presented with nausea, vomiting diarrhea and weakness. He was admitted for management of weakness with presumed gastroenteritis. Diagnosis: Stroke: No - Discharge Data Discharge Date: 12/29/20 Discharge Disposition: Home, Self-Care 01 Condition: Good - Referral to Home Health Primary Care Physician: PCP None - Discharge Diagnosis/Problem(s) (1) Gastroenteritis SNOMED Code(s): 03875050 ICD Code: K52.9 - NONINFECTIVE GASTROENTERITIS AND COLITIS, UNSPECIFIED Status: Acute Current Visit: Yes (2) Atrial fibrillation SNOMED Code(s): 43172326 ICD Code: I48.91 - UNSPECIFIED ATRIAL FIBRILLATION Status: Chronic Current Visit: Yes Qualifiers: Atrial fibrillation type: paroxysmal Qualified Code(s): I48.0 - Paroxysmal atrial fibrillation (3) Transaminitis SNOMED Code(s): 771033802, 677208479 ICD Code: R74.01 - ELEVATION OF LEVELS OF LIVER TRANSAMINASE LEVELS Status: Acute Current Visit: Yes (4) Pancytopenia SNOMED Code(s): 619644143 ICD Code: D61.818 - OTHER PANCYTOPENIA Status: Acute Current Visit: Yes (5) Status post gastric bypass for obesity SNOMED Code(s): 151804960, 074782633, 298759020, 165926398 ICD Code: Z98.84 - BARIATRIC SURGERY STATUS Status: Chronic Priority: Low Current Visit: Yes - Patient Summary/Data Hospital Course: Allan presented to the emergency room with nausea, vomiting, diarrhea and weakness. Work-up in the emergency room revealed mild pancytopenia as well as a mild elevation of AST and ALT. Patient appeared dehydrated and was so weak and lightheaded with attempts to ambulate. He was admitted for hydration and observation. Overnight following admission there were no acute issues. His nausea, vomiting and diarrhea have resolved. He is feeling much better today with no significant lightheadedness. He was able to walk a great distance down the [place] and back without any symptoms. His laboratory studies are all stable. He does report that he is working with a drapery rod assembler to manage his pancytopenia and his numbers have been improving. We did check iron studies and B12. His iron was on the lower side of normal but remained in the normal range. His ferritin was quite elevated at more than 800. B12 was excellent. He feels well and is ready for discharge home at this time. No specific additional follow-up is necessary as he has upcoming appointments. He will return if symptoms do not continue to get better or if they get worse. - Patient Instructions Diet: Regular Diet as Tolerated Activity: As Tolerated Showering/Bathing: May Shower Notify Provider of: Fever, Increased Pain, Nausea and/or Vomiting Other/Special Instructions: 1. You were in the hospital for management of nausea with vomiting and diarrhea but I suspect was caused by a virus leading to gastroenteritis. Your condition has improved with IV fluid hydration. No specific treatment is required at this time. I would encourage you to drink plenty of fluid (goal of 64 ounces per day) each day to avoid dehydration. 2. Continue your usual medications as previously prescribed. 3. Follow-up as needed with your primary care physician if symptoms do not continue to get better or if they get worse. - Discharge Plan *PRESCRIPTION DRUG MONITORING PROGRAM REVIEWED*: Not Applicable *COPY OF PRESCRIPTION DRUG MONITORING REPORT IN PATIENT TOSIN: Not Applicable Home Medications: Home Meds Acetaminophen [Tylenol] 650 mg PO Q6H PRN 12/28/20 [History] Citalopram Hydrobromide [Celexa] 40 mg PO DAILY 12/28/20 [History] Digoxin 125 mcg PO DAILY 12/28/20 [History] Flecainide [Tambocor] 50 mg PO BID 12/28/20 [History] Folic Acid 1 mg PO DAILY 12/28/20 [History] Niacin 500 mg PO ASDIRECTED 12/28/20 [History] Pantoprazole Sodium [Protonix] 40 mg PO DAILY 12/28/20 [History] Papaya [Papaya Enzyme] 4 tab PO ASDIRECTED PRN 12/28/20 [History] Patient Handouts: Viral Gastroenteritis, Adult Referrals: David Kumar MD [Physician] - (f/u as needed after the hospital stay ) - Discharge Summary/Plan Comment DC Time >30 min.: No - Patient Data Vitals - Most Recent: Last Vital Signs Temp 36.8 C 12/29/20 11:00 Pulse 100 12/29/20 11:00 Resp 18 12/29/20 11:00 BP 140/89 12/29/20 11:00 Pulse Ox 98 12/29/20 11:00 Weight - Most Recent: 93.984 kg I&O - Last 24 hours: Intake & Output 12/28/20 12/29/20 12/29/20 22:59 06:59 14:59 Intake Total 396 360 Balance 396 360 Lab Results - Last 24 hrs: Laboratory Results - last 24 hr 12/28/20 12/28/20 12/28/20 Range/Units 20:53 20:57 20:57 WBC 3.8 L (4.5-11.0) K/uL RBC 3.85 L (4.30-5.90) M/uL Hgb 10.8 L (12.0-15.0) g/dL Hct 33.0 L (40.0-54.0) % MCV 86 (80-98) fL MCH 28 (27-31) pg MCHC 33 (32-36) % Plt Count 94 L (150-400) K/uL Neut % (Auto) 68.5 H (36-66) % Lymph % (Auto) 21.7 L (24-44) % [place] % (Auto) 7.4 H (2-6) % Eos % (Auto) 0.8 L (2-4) % Baso % (Auto) 1.6 H (0-1) % Sodium 145 (140-148) mmol/L Potassium 4.2 (3.6-5.2) mmol/L Chloride 107 (100-108) mmol/L Carbon Dioxide 25 (21-32) mmol/L Anion Gap 12.6 (5.0-14.0) mmol/L BUN 7 (7-18) mg/dL Creatinine 0.9 (0.8-1.3) mg/dL Est Cr Clr Drug Dosing 106.56 mL/min Estimated GFR (MDRD) > 60 (>60) Glucose 65 L (74-106) mg/dL Lactic Acid (0.4-2.0) mmol/L Calcium 7.8 L (8.5-10.1) mg/dL Iron (65-175) ug/dL TIBC (250-450) ug/dl % Saturation (20-55) % Ferritin (8-388) ng/ml Total Bilirubin 0.7 (0.2-1.0) mg/dL AST 220 H D (15-37) U/L ALT 108 H (12-78) U/L Alkaline Phosphatase 157 H (46-116) U/L NT-Pro-B Natriuret Pep (5-125) pg/mL Total Protein 4.8 L (6.4-8.2) g/dL Albumin 1.3 L (3.4-5.0) g/dL Globulin 3.5 (2.3-3.5) g/dL Albumin/Globulin Ratio 0.4 L (1.2-2.2) Vitamin B12 (193-986) pg/ml Procalcitonin < 0.05 ng/mL TSH, Ultra Sensitive 1.484 (0.358-3.740) uIU/mL Urine Color (YELLOW) Urine Appearance (CLEAR) Urine pH (5.0-8.0) Ur Specific [place] (1.008-1.030) Urine Protein (NEGATIVE) mg/dL Urine Glucose (UA) (NEGATIVE) mg/dL Urine Ketones (NEGATIVE) mg/dL Urine Occult Blood (NEGATIVE) Urine Nitrite (NEGATIVE) Urine Bilirubin (NEGATIVE) Urine Urobilinogen (0.2-1.0) EU/dL Ur Leukocyte Esterase (NEGATIVE) Urine RBC (0-5) Urine WBC (0-5) Ur Epithelial Cells Amorphous Sediment Urine Bacteria Urine Mucus Digoxin 0.62 L (0.90-2.00) ng/mL Ethyl Alcohol mg/dL SARS CoV-2 RNA Rapid EDD 12/28/20 12/28/20 12/28/20 Range/Units 20:57 20:57 21:39 WBC (4.5-11.0) K/uL RBC (4.30-5.90) M/uL Hgb (12.0-15.0) g/dL Hct (40.0-54.0) % MCV (80-98) fL MCH (27-31) pg MCHC (32-36) % Plt Count (150-400) K/uL Neut % (Auto) (36-66) % Lymph % (Auto) (24-44) % [place] % (Auto) (2-6) % Eos % (Auto) (2-4) % Baso % (Auto) (0-1) % Sodium (140-148) mmol/L Potassium (3.6-5.2) mmol/L Chloride (100-108) mmol/L Carbon Dioxide (21-32) mmol/L Anion Gap (5.0-14.0) mmol/L BUN (7-18) mg/dL Creatinine (0.8-1.3) mg/dL Est Cr Clr Drug Dosing mL/min Estimated GFR (MDRD) (>60) Glucose (74-106) mg/dL Lactic Acid 5.2 H (0.4-2.0) mmol/L Calcium (8.5-10.1) mg/dL Iron (65-175) ug/dL TIBC (250-450) ug/dl % Saturation (20-55) % Ferritin (8-388) ng/ml Total Bilirubin (0.2-1.0) mg/dL AST (15-37) U/L ALT (12-78) U/L Alkaline Phosphatase (46-116) U/L NT-Pro-B Natriuret Pep (5-125) pg/mL Total Protein (6.4-8.2) g/dL Albumin (3.4-5.0) g/dL Globulin (2.3-3.5) g/dL Albumin/Globulin Ratio (1.2-2.2) Vitamin B12 (193-986) pg/ml Procalcitonin ng/mL TSH, Ultra Sensitive (0.358-3.740) uIU/mL Urine Color (YELLOW) Urine Appearance (CLEAR) Urine pH (5.0-8.0) Ur Specific [place] (1.008-1.030) Urine Protein (NEGATIVE) mg/dL Urine Glucose (UA) (NEGATIVE) mg/dL Urine Ketones (NEGATIVE) mg/dL Urine Occult Blood (NEGATIVE) Urine Nitrite (NEGATIVE) Urine Bilirubin (NEGATIVE) Urine Urobilinogen (0.2-1.0) EU/dL Ur Leukocyte Esterase (NEGATIVE) Urine RBC (0-5) Urine WBC (0-5) Ur Epithelial Cells Amorphous Sediment Urine Bacteria Urine Mucus Digoxin (0.90-2.00) ng/mL Ethyl Alcohol 12 mg/dL SARS CoV-2 RNA Rapid EDD Negative 12/28/20 12/28/20 12/29/20 Range/Units 22:04 22:24 06:00 WBC 3.8 L (4.5-11.0) K/uL RBC 3.24 L (4.30-5.90) M/uL Hgb 9.1 L (12.0-15.0) g/dL Hct 28.1 L (40.0-54.0) % MCV 87 (80-98) fL MCH 28 (27-31) pg MCHC 32 (32-36) % Plt Count 80 L (150-400) K/uL Neut % (Auto) 44.9 (36-66) % Lymph % (Auto) 42.1 (24-44) % [place] % (Auto) 8.6 H (2-6) % Eos % (Auto) 3.1 (2-4) % Baso % (Auto) 1.3 H (0-1) % Sodium (140-148) mmol/L Potassium (3.6-5.2) mmol/L Chloride (100-108) mmol/L Carbon Dioxide (21-32) mmol/L Anion Gap (5.0-14.0) mmol/L BUN (7-18) mg/dL Creatinine (0.8-1.3) mg/dL Est Cr Clr Drug Dosing mL/min Estimated GFR (MDRD) (>60) Glucose (74-106) mg/dL Lactic Acid (0.4-2.0) mmol/L Calcium (8.5-10.1) mg/dL Iron (65-175) ug/dL TIBC (250-450) ug/dl % Saturation (20-55) % Ferritin (8-388) ng/ml Total Bilirubin (0.2-1.0) mg/dL AST (15-37) U/L ALT (12-78) U/L Alkaline Phosphatase (46-116) U/L NT-Pro-B Natriuret Pep 1270 H (5-125) pg/mL Total Protein (6.4-8.2) g/dL Albumin (3.4-5.0) g/dL Globulin (2.3-3.5) g/dL Albumin/Globulin Ratio (1.2-2.2) Vitamin B12 (193-986) pg/ml Procalcitonin ng/mL TSH, Ultra Sensitive (0.358-3.740) uIU/mL Urine Color Yellow (YELLOW) Urine Appearance Clear (CLEAR) Urine pH 6.0 (5.0-8.0) Ur Specific [place] 1.025 (1.008-1.030) Urine Protein Negative (NEGATIVE) mg/dL Urine Glucose (UA) Negative (NEGATIVE) mg/dL Urine Ketones Negative (NEGATIVE) mg/dL Urine Occult Blood Small H (NEGATIVE) Urine Nitrite Negative (NEGATIVE) Urine Bilirubin Negative (NEGATIVE) Urine Urobilinogen 0.2 (0.2-1.0) EU/dL Ur Leukocyte Esterase Negative (NEGATIVE) Urine RBC 5-10 H (0-5) Urine WBC Not seen (0-5) Ur Epithelial Cells Not seen Amorphous Sediment Not seen Urine Bacteria Not seen Urine Mucus Moderate Digoxin (0.90-2.00) ng/mL Ethyl Alcohol mg/dL SARS CoV-2 RNA Rapid EDD 12/29/20 12/29/20 12/29/20 Range/Units 06:00 08:10 08:10 WBC (4.5-11.0) K/uL RBC (4.30-5.90) M/uL Hgb (12.0-15.0) g/dL Hct (40.0-54.0) % MCV (80-98) fL MCH (27-31) pg MCHC (32-36) % Plt Count (150-400) K/uL Neut % (Auto) (36-66) % Lymph % (Auto) (24-44) % [place] % (Auto) (2-6) % Eos % (Auto) (2-4) % Baso % (Auto) (0-1) % Sodium 145 (140-148) mmol/L Potassium 3.9 (3.6-5.2) mmol/L Chloride 110 H (100-108) mmol/L Carbon Dioxide 29 (21-32) mmol/L Anion Gap 9.9 (5.0-14.0) mmol/L BUN 6 L (7-18) mg/dL Creatinine 0.9 (0.8-1.3) mg/dL Est Cr Clr Drug Dosing 106.56 mL/min Estimated GFR (MDRD) > 60 (>60) Glucose 68 L (74-106) mg/dL Lactic Acid (0.4-2.0) mmol/L Calcium 7.5 L (8.5-10.1) mg/dL Iron 75 (65-175) ug/dL TIBC 76 L (250-450) ug/dl % Saturation 99 H (20-55) % Ferritin 854 H (8-388) ng/ml Total Bilirubin (0.2-1.0) mg/dL AST (15-37) U/L ALT (12-78) U/L Alkaline Phosphatase (46-116) U/L NT-Pro-B Natriuret Pep (5-125) pg/mL Total Protein (6.4-8.2) g/dL Albumin (3.4-5.0) g/dL Globulin (2.3-3.5) g/dL Albumin/Globulin Ratio (1.2-2.2) Vitamin B12 1323 H (193-986) pg/ml Procalcitonin ng/mL TSH, Ultra Sensitive (0.358-3.740) uIU/mL Urine Color (YELLOW) Urine Appearance (CLEAR) Urine pH (5.0-8.0) Ur Specific [place] (1.008-1.030) Urine Protein (NEGATIVE) mg/dL Urine Glucose (UA) (NEGATIVE) mg/dL Urine Ketones (NEGATIVE) mg/dL Urine Occult Blood (NEGATIVE) Urine Nitrite (NEGATIVE) Urine Bilirubin (NEGATIVE) Urine Urobilinogen (0.2-1.0) EU/dL Ur Leukocyte Esterase (NEGATIVE) Urine RBC (0-5) Urine WBC (0-5) Ur Epithelial Cells Amorphous Sediment Urine Bacteria Urine Mucus Digoxin (0.90-2.00) ng/mL Ethyl Alcohol mg/dL SARS CoV-2 RNA Rapid EDD Med Orders - Current: Current Medications Acetaminophen (Acetaminophen Soln 650 Mg/20.3 Ml Ud Cup) 650 mg PO Q6H PRN PRN Reason: Pain Albuterol (Albuterol 0.083% 2.5 Mg/3 Ml Neb Soln) 2.5 mg NEB Q4H PRN PRN Reason: Shortness Of Breath/wheezing Bisacodyl (Bisacodyl 5 Mg Tab) 5 mg PO DAILY PRN PRN Reason: Constipation Citalopram Hydrobromide (Citalopram 20 Mg Tab) 40 mg PO DAILY [facility] Last Admin: 12/29/20 08:47 Dose: 40 mg Documented by: Digoxin (Digoxin 125 Mcg Tab) 125 mcg PO DAILY@1300 [facility] Docusate Sodium (Docusate Sodium 100 Mg Cap) 100 mg PO BID PRN PRN Reason: Constipation Flecainide Acetate (Flecainide 50 Mg Tab) 50 mg PO BID [facility] Last Admin: 12/29/20 08:46 Dose: 50 mg Documented by: Folic Acid (Folic Acid 1 Mg Tab) 1 mg PO DAILY [facility] Last Admin: 12/29/20 08:47 Dose: 1 mg Documented by: Sodium Chloride (Normal Saline) 1,000 mls @ 125 mls/hr IV ASDIRECTED [facility] Last Admin: 12/29/20 10:26 Dose: 125 mls/hr Documented by: Lorazepam (Lorazepam 2 Mg/Ml Sdv) 1 mg IV Q6H PRN PRN Reason: Nausea/Vomiting Melatonin (Melatonin 3 Mg Tab) 6 mg PO BEDTIME [facility] Last Admin: 12/29/20 02:11 Dose: 6 mg Documented by: Morphine Sulfate (Morphine 2 Mg/Ml Syringe) 2 mg IVPUSH Q2H PRN PRN Reason: Pain (severe 7-10) Niacin (Niacin 250 Mg Tab.Er) 500 mg PO DAILY [facility] Last Admin: 12/29/20 08:46 Dose: 500 mg Documented by: Papaya Enzyme Ptom () 4 tab PO ASDIRECTED PRN PRN Reason: digestive health Ondansetron HCl (Ondansetron 4 Mg Tab.Dis) 4 mg PO Q6H PRN PRN Reason: Nausea able to take PO Ondansetron HCl (Ondansetron 4 Mg/2 Ml Sdv) 4 mg IV Q4H PRN PRN Reason: Nausea/Vomiting Oxycodone HCl (Oxycodone 5 Mg Tab) 5 mg PO Q4H PRN PRN Reason: Pain (moderate 4-6) Pantoprazole Sodium (Pantoprazole 40 Mg Tab.Cr) 40 mg PO ACBREAKFAST [facility] Last Admin: 12/29/20 07:49 Dose: 40 mg Documented by: Sodium Chloride (Sodium Chloride 0.9% 10 Ml Syringe) 10 ml FLUSH ASDIRECTED PRN PRN Reason: Keep Vein Open Last Admin: 12/28/20 21:05 Dose: 10 ml Documented by: Discontinued Medications Lactated Ringer's (Ringers, Lactated) 1,000 mls @ 999 mls/hr IV BOLUS ONE Stop: 12/28/20 21:38 Last Admin: 12/28/20 20:59 Dose: 999 mls/hr Documented by: Lactated Ringer's (Ringers, Lactated) 1,000 mls @ 999 mls/hr IV BOLUS ONE Stop: 12/28/20 23:04 Last Admin: 12/28/20 22:43 Dose: 999 mls/hr Documented by: Ondansetron HCl (Ondansetron 4 Mg/2 Ml Sdv) 4 mg IVPUSH ONETIME ONE Stop: 12/28/20 20:39 Last Admin: 12/28/20 20:59 Dose: 4 mg Documented by: Prochlorperazine Edisylate (Prochlorperazine 10 Mg/2 Ml Sdv) 5 mg IVPUSH ONETIME ONE Stop: 12/28/20 22:51 Last Admin: 12/28/20 23:45 Dose: 5 mg Documented by:
[2020-12-29] MEDS ORDERED: Digoxin 125 MCG Tab PO SCH (13:00)
== END 2020-12-29 13:51 | disposition home or self-care (01) ==
LOC: JP.ED 20:16 → JP.MS 12-29 00:31
PROVIDERS: ADMIT Internal Medicine; ATTEND Internal Medicine
DX: R53.1 Weakness (principal); K52.9 Noninfective gastroenteritis and colitis, unspecified; I48.0 Paroxysmal atrial fibrillation; R74.01 Elevation of levels of liver transaminase levels; D61.818 Other pancytopenia; E78.00 Pure hypercholesterolemia, unspecified; I10 Essential (primary) hypertension; E03.9 Hypothyroidism, unspecified; F41.1 Generalized anxiety disorder; E66.9 Obesity, unspecified; Z68.26 Body mass index [BMI] 26.0-26.9, adult; Z20.822 Contact with and (suspected) exposure to COVID-19; Z79.899 Other long term (current) drug therapy; Z98.84 Bariatric surgery status; Z86.79 Personal history of other diseases of the circulatory system
CPT/HCPCS: 36415; 80048; 80053; 80162; 80307; 81001; 82607; 82728; 83550; 83605; 83880; 84145; 84443; 85025; 87635; 96374; 96375; 99284; 99285; A9270; J0780; J2405; J7030; J7120; G0378; U0002

== ENCOUNTER 2022-08-26 14:21 | Observation (INO) | payer MEDICAID ==
[2022-08-26] MEDS ORDERED: Sodium Chloride 0.9% 10 ML Syringe FLUSH PRN ×2 (14:52→17:35)
[2022-08-26] MEDS ORDERED: Lactated Ringers 1,000 ML IV SCH (15:00)
[2022-08-26 15:35] LABS: ESTIMATED GFR 88 mL/min (>60); TROPONIN I HIGH SENSITIVITY 8.7 pg/mL (<=60.3)
[2022-08-26] MEDS ORDERED: Prochlorperazine 10 MG/2 ML SDV IVPUSH ONE (16:07)
[2022-08-26 16:47] LABS: HEMOGLOBIN A1C 4.5 % (4.5-6.2)
[2022-08-26 16:58] LABS: CORONAVIRUS COVID-19 NAA NEGATIVE (NEGATIVE)
[2022-08-26] MEDS ORDERED: LORazepam 1 MG Tab PO SCH (17:35)
[2022-08-26] MEDS ORDERED: MVI, Adult with Vitamin K 10 ML, Thiamine 100 MG, Folic Acid 1 MG, Magnesium Sulfate 2 ... IV ONE ×5 (17:35)
[2022-08-26] MEDS ORDERED: Ondansetron 4 MG/2 ML SDV IV PRN (17:35)
[2022-08-26] MEDS ORDERED: Acetaminophen 325 MG Tab PO PRN (17:35)
[2022-08-26] MEDS: Lactated Ringers 1,000 ML IV SCH (17:46)
[2022-08-26] MEDS ORDERED: Warfarin 5 MG Tab PO ONE (18:30)
[2022-08-26] MEDS: Digoxin 125 MCG Tab PO SCH (18:37)
[2022-08-26] MEDS: Thiamine 100 MG Tab PO SCH (18:42)
[2022-08-26] MEDS ORDERED: Sodium Chloride 0.9% 1,000 ML IV ONE (20:38)
[2022-08-27] MEDS ORDERED: Sodium Chloride 0.9% 1,000 ML IV ONE (01:21)
[2022-08-27 06:25] LABS: ESTIMATED GFR 100 mL/min (>60)
[2022-08-27] MEDS: Potassium Chloride 10 MEQ in Premix Bag 1 BAG IV SCH ×4 (08:24→12:14)
[2022-08-27] MEDS: Lactated Ringers 1,000 ML IV SCH (08:24)
[2022-08-27] MEDS ORDERED: Midodrine 5 MG Tab PO SCH ×2 (09:30→14:00)
[2022-08-27] MEDS: Folic Acid 1 MG Tab PO SCH (09:44)
[2022-08-27] MEDS: Vitamin B6-pyridOXINE 50 MG Tab PO SCH (09:44)
[2022-08-27] MEDS: Thiamine 100 MG Tab PO SCH (09:44)
[2022-08-27] MEDS: Ferrous Sulfate 325 MG Tab PO SCH (09:44)
[2022-08-27] MEDS: Cyanocobalamin (Vitamin B12) 1,000 MCG Tab PO SCH (09:44)
[2022-08-27] MEDS: Cholecalciferol (Vitamin D3) 25 MCG Tab PO SCH (09:44)
[2022-08-27] MEDS: Citalopram 20 MG Tab PO SCH (09:45)
[2022-08-27] MEDS ORDERED: Potassium Chloride 20 MEQ Tab.ER PO ONE (09:45)
[2022-08-27] MEDS: Vitamin A 100,000 Units/2 ML SDV IM SCH (09:51)
[2022-08-27] MEDS ORDERED: Digoxin 125 MCG Tab PO SCH (13:00)
[2022-08-27] MEDS: Cupric Chloride 2 MG in Sodium Chloride 0.9% 250 ML IV SCH (13:18)
[2022-08-27] MEDS: Midodrine 5 MG Tab PO SCH ×2 (13:22→17:17)
[2022-08-27] MEDS: Digoxin 125 MCG Tab PO SCH (13:22)
[2022-08-27] MEDS: Warfarin 5 MG Tab PO SCH (15:48)
[2022-08-28 05:42] LABS: ESTIMATED GFR 100 mL/min (>60)
[2022-08-28] MEDS: Ferrous Sulfate 325 MG Tab PO SCH (08:46)
[2022-08-28] MEDS: Midodrine 5 MG Tab PO SCH ×3 (08:47→15:57)
[2022-08-28] MEDS: Cyanocobalamin (Vitamin B12) 1,000 MCG Tab PO SCH (08:48)
[2022-08-28] MEDS: Folic Acid 1 MG Tab PO SCH (08:48)
[2022-08-28] MEDS: Thiamine 100 MG Tab PO SCH (08:48)
[2022-08-28] MEDS: Citalopram 20 MG Tab PO SCH (08:48)
[2022-08-28] MEDS: Vitamin A 100,000 Units/2 ML SDV IM SCH (08:48)
[2022-08-28] MEDS: Cholecalciferol (Vitamin D3) 25 MCG Tab PO SCH (08:48)
[2022-08-28] MEDS: Vitamin B6-pyridOXINE 50 MG Tab PO SCH (08:48)
[2022-08-28] MEDS: Digoxin 125 MCG Tab PO SCH (12:08)
[2022-08-28] MEDS: Cupric Chloride 2 MG in Sodium Chloride 0.9% 250 ML IV SCH (12:09)
[2022-08-28] MEDS: Warfarin 5 MG Tab PO SCH (15:57)
[2022-08-29] MEDS: Ferrous Sulfate 325 MG Tab PO SCH (08:54)
[2022-08-29 08:55] VITALS: BP 106/64; PULSE 65
[2022-08-29] MEDS: Thiamine 100 MG Tab PO SCH (08:55)
[2022-08-29] MEDS: Citalopram 20 MG Tab PO SCH (08:55)
[2022-08-29] MEDS: Midodrine 5 MG Tab PO SCH ×2 (08:55→11:32)
[2022-08-29] MEDS: Folic Acid 1 MG Tab PO SCH (08:55)
[2022-08-29] MEDS: Cholecalciferol (Vitamin D3) 25 MCG Tab PO SCH (08:55)
[2022-08-29] MEDS: Cyanocobalamin (Vitamin B12) 1,000 MCG Tab PO SCH (08:55)
[2022-08-29] MEDS: Vitamin B6-pyridOXINE 50 MG Tab PO SCH (08:55)
== END 2022-08-29 11:55 | disposition home or self-care (01) ==
LOC: JP.ED 14:21 → JP.MS 16:27
PROVIDERS: ADMIT Hospitalist; ATTEND Surgery
DX: R10.811 Right upper quadrant abdominal tenderness (principal); E03.9 Hypothyroidism, unspecified; R53.1 Weakness; I95.1 Orthostatic hypotension; I10 Essential (primary) hypertension; E78.00 Pure hypercholesterolemia, unspecified; I48.0 Paroxysmal atrial fibrillation; F41.9 Anxiety disorder, unspecified; F32.A Depression, unspecified; E66.9 Obesity, unspecified; G47.30 Sleep apnea, unspecified; K21.9 Gastro-esophageal reflux disease without esophagitis; D50.9 Iron deficiency anemia, unspecified; F17.210 Nicotine dependence, cigarettes, uncomplicated; K80.20 Calculus of gallbladder without cholecystitis without obstruction; I27.20 Pulmonary hypertension, unspecified; E53.8 Deficiency of other specified B group vitamins; Z98.84 Bariatric surgery status; Z79.899 Other long term (current) drug therapy; Z98.890 Other specified postprocedural states; Z20.822 Contact with and (suspected) exposure to COVID-19
CPT/HCPCS: 0241U; 36415; 76705; 76705-26; 80053; 80162; 81001; 82306; 82607; 82728; 82746; 83036; 83605; 83690; 83735; 84425; 84443; 84484; 85025; 85610; 96361; 96365; 96366; 96367; 96372; 96374; 96375; 97162-GP; 97165-GO; 99222; 99232; 99238; 99284; 99285-25; A9270-GY; G0378; J0780; J2405; J3411; J3475; J3480; J3490; J7030; J7050; J7120

== ENCOUNTER 2022-09-13 20:43 | Emergency (ER) | payer MEDICAID ==
[2022-09-13 21:01] VITALS: BP 146/95; PULSE 77
[2022-09-13] MEDS ORDERED: Ondansetron 4 MG/2 ML SDV IVPUSH ONE (21:09)
[2022-09-13] MEDS ORDERED: Sodium Chloride 0.9% 1,000 ML IV SCH (21:15)
[2022-09-13 21:59] LABS: ESTIMATED GFR 78 mL/min (>60)
== END 2022-09-14 05:13 | disposition home or self-care (01) ==
LOC: JP.ED 20:43
DX: K52.9 Noninfective gastroenteritis and colitis, unspecified (principal); I48.91 Unspecified atrial fibrillation; I10 Essential (primary) hypertension; E66.9 Obesity, unspecified; Z68.29 Body mass index [BMI] 29.0-29.9, adult; Z79.01 Long term (current) use of anticoagulants; Z79.899 Other long term (current) drug therapy
CPT/HCPCS: 36415; 80053; 83690; 85025; 87046; 87899; 89055; 96361; 96374; 99283; 99284-25; J2405; J7030

== ENCOUNTER 2023-07-30 11:24 | Emergency (ER) | payer MEDICAID ==
[2023-07-30] MEDS ORDERED: Sodium Chloride 0.9% 10 ML Syringe FLUSH PRN (11:40)
[2023-07-30] MEDS ORDERED: Ondansetron 4 MG/2 ML SDV IVPUSH ONE (11:45)
[2023-07-30] MEDS ORDERED: Sodium Chloride 0.9% 1,000 ML IV ONE ×3 (11:45→18:09)
[2023-07-30 11:51] LABS: BASOPHILS ABSOLUTE AUTO 0.03 K/uL (0.00-0.10); BASOPHILS PERCENT AUTO 0.5 % (0.1-1.3); EOSINOPHILS PERCENT AUTO 0.2 % (0.0-5.4); HEMATOCRIT 36.1 % (38.4-49.7); HEMOGLOBIN 12.1 g/dL (12.9-16.9); IMMATURE GRAN PERCENT AUTO 0.3 % (0.0-0.7); LYMPHOCYTES ABSOLUTE AUTO 0.62 K/uL (0.8-3.3); LYMPHOCYTES PERCENT AUTO 9.9 % (11.4-47.7); MEAN CORPUSCULAR HEMOGLOBIN 29.9 pg (31.6-35.5); MEAN CORPUSCULAR HGB CONC 33.5 g/dL (31.6-35.5); MEAN CORPUSCULAR VOLUME 89.1 fL (81.4-99.0); MONOCYTES ABSOLUTE AUTO 0.34 K/uL (0.20-0.90); MONOCYTES PERCENT AUTO 5.4 % (3.3-12.6); NEUTROPHILS ABSOLUTE AUTO 5.27 K/uL (1.0-7.6); NEUTROPHILS PERCENT AUTO 83.7 % (40.0-78.1); PLATELET COUNT,PLT 46 K/uL (130-375); RED BLOOD CELL COUNT 4.05 M/uL (4.14-5.76); WHITE BLOOD CELL COUNT,WBC 6.3 K/uL (3.2-11.0)
[2023-07-30 11:53] LABS: EOSINOPHILS ABSOLUTE AUTO 0.01 K/uL (0.00-0.40); IMMATURE GRAN ABSOLUTE AUTO 0.02 K/uL (0.00-0.23)
[2023-07-30] MEDS ORDERED: Metoclopramide 10 MG/2 ML SDV IVPUSH ONE (12:00)
[2023-07-30 12:16] LABS: A/G RATIO 0.7 (1.2-2.2); ALANINE AMINOTRANSFERASE,ALT 101 U/L (12-78); ALKALINE PHOSPHATASE 267 U/L (46-116); ASPARTATE AMNIOTRANSFERASE,AST 182 U/L (15-37); BILIRUBIN TOTAL 4.8 mg/dL (0.2-1.0); BLOOD UREA NITROGEN,BUN 5 mg/dL (7-18); C-REACTIVE PROTEIN 0.85 mg/dL (<0.50); CALCIUM 7.9 mg/dL (8.5-10.1); CARBON DIOXIDE,CO2 24 mmol/L (21-32); CHLORIDE,CL 102 mmol/L (100-108); CREATININE 1.1 mg/dL (0.8-1.3); EST CRCL DRUG DOSING (CG) 80.34 mL/min; ESTIMATED GFR 78 mL/min (>60); GLUCOSE RANDOM 88 mg/dL (74-106); PROTEIN TOTAL,TP 4.8 g/dL (6.4-8.2); SODIUM,NA 135 mmol/L (140-148)
[2023-07-30 12:20] LABS: LACTIC ACID 4.4 mmol/L (0.4-2.0)
[2023-07-30] MEDS ORDERED: Sodium Chloride 0.9% 10 ML Syringe FLUSH ONE (12:30)
[2023-07-30] MEDS ORDERED: Sodium Chloride 0.9% 80 ML IV ONE (12:30)
[2023-07-30] MEDS ORDERED: Iopamidol 612 MG/ML 100 ML Bottle IV ONE (12:30)
[2023-07-30 12:57] LABS: PROTHROMBIN TIME 40.5 sec (9.2-10.6)
[2023-07-30 13:00] LABS: INR 4.4
[2023-07-30] MEDS ORDERED: Piperacillin/Tazobactam 3.375 GM in Sodium Chloride 0.9% 50 ML IV ONE (13:49)
[2023-07-30 13:58] LABS: BILIRUBIN DIRECT 2.99 mg/dL (0.0-0.2)
[2023-07-30 14:33] LABS: CORONAVIRUS COVID-19 NAA NEGATIVE (NEGATIVE); INFLUENZA A NAA NEGATIVE (NEGATIVE); INFLUENZA B NAA NEGATIVE (NEGATIVE); RESPIRATORY SYNCYTIAL VIR NAA NEGATIVE (NEGATIVE)
[2023-07-30] MEDS ORDERED: LORazepam 1 MG Tab PO SCH (15:15)
[2023-07-30] MEDS ORDERED: LORazepam 2 MG/ML SDV IV SCH (15:15)
[2023-07-30] MEDS ORDERED: HYDROmorphone 0.5 MG/0.5 ML Syringe IVPUSH PRN (18:55)
[2023-07-30] MEDS ORDERED: Phytonadione 5 MG Tab PO ONE (19:18)
[2023-07-30] MEDS ORDERED: Phytonadione 10 MG in Sodium Chloride 0.9% 50 ML IV ONE (19:25)
[2023-07-30] MEDS: Piperacillin/Tazobactam 3.375 GM in Sodium Chloride 0.9% 50 ML IV SCH (21:25)
[2023-07-30] MEDS ORDERED: Norepinephrine Bit/D5W Premix 4 MG in Premix Bag 1 BAG IV SCH (22:45)
[2023-07-31] MEDS: Metoclopramide 10 MG/2 ML SDV IVPUSH PRN ×2 (00:02→08:27)
[2023-07-31] MEDS: Piperacillin/Tazobactam 3.375 GM in Sodium Chloride 0.9% 50 ML IV SCH (04:25)
[2023-07-31 05:28] LABS: BASOPHILS PERCENT AUTO 0.5 % (0.1-1.3); EOSINOPHILS ABSOLUTE AUTO 0.04 K/uL (0.00-0.40); HEMATOCRIT 27.4 % (38.4-49.7); HEMOGLOBIN 9.4 g/dL (12.9-16.9); IMMATURE GRAN PERCENT AUTO 0.3 % (0.0-0.7); LYMPHOCYTES ABSOLUTE AUTO 0.68 K/uL (0.8-3.3); MEAN CORPUSCULAR HGB CONC 34.3 g/dL (31.6-35.5); MEAN CORPUSCULAR VOLUME 87.5 fL (81.4-99.0); NEUTROPHILS ABSOLUTE AUTO 2.85 K/uL (1.0-7.6); NEUTROPHILS PERCENT AUTO 71.2 % (40.0-78.1); PLATELET COUNT,PLT 30 K/uL (130-375); RED BLOOD CELL COUNT 3.13 M/uL (4.14-5.76)
[2023-07-31 05:44] LABS: A/G RATIO 0.7 (1.2-2.2); ALBUMIN 1.4 g/dL (3.4-5.0); BILIRUBIN DIRECT 5.05 mg/dL (0.0-0.2); BILIRUBIN INDIRECT 1.45; BILIRUBIN TOTAL 6.5 mg/dL (0.2-1.0); CREATININE 0.9 mg/dL (0.8-1.3); EST CRCL DRUG DOSING (CG) 98.2 mL/min; POTASSIUM,K 3.9 mmol/L (3.6-5.2)
[2023-07-31 06:23] LABS: BASOPHILS ABSOLUTE AUTO 0.02 K/uL (0.00-0.10); IMMATURE GRAN ABSOLUTE AUTO 0.01 K/uL (0.00-0.23)
[2023-07-31 06:24] LABS: ANION GAP 8.9 mmol/L (5.0-14.0)
[2023-07-31 06:25] LABS: PROTEIN TOTAL,TP 3.5 g/dL (6.4-8.2)
[2023-07-31 06:27] LABS: INR 1.9; PROTHROMBIN TIME 18.5 sec (9.2-10.6)
[2023-07-31] MEDS ORDERED: D5 1/2 NS w/ 20 mEq/L KCl 1,000 ML IV SCH (08:00)
[2023-07-31] MEDS: Midodrine 5 MG Tab PO SCH ×2 (08:13→11:11)
[2023-07-31] MEDS ORDERED: Citalopram 20 MG Tab PO SCH (09:00)
[2023-07-31] MEDS ORDERED: Piperacillin/Tazobactam 3.375 GM in Sodium Chloride 0.9% 50 ML IV SCH (10:00)
[2023-07-31 12:17] LABS: INR 1.6; PROTHROMBIN TIME 15.5 sec (9.2-10.6)
[2023-07-31] MEDS ORDERED: Lidocaine 1% 20 ML MDV INJECT ONE (13:00)
[2023-07-31] MEDS ORDERED: Digoxin 125 MCG Tab PO SCH (13:00)
[2023-07-31] MEDS ORDERED: fentaNYL 50 MCG/ML SDV IVPUSH ONE (14:30)
[2023-07-31] MEDS ORDERED: Midazolam 1 MG/ML 2 ML SDV IVPUSH ONE (14:30)
[2023-07-31] MEDS ORDERED: Flumazenil 0.1 MG/ML 5 ML MDV IVPUSH PRN (14:30)
[2023-07-31] MEDS ORDERED: Naloxone 0.4 MG/ML SDV IVPUSH PRN (14:30)
[2023-07-31 15:01] VITALS: BP 109/64; PULSE 74
== END 2023-07-31 14:42 ==
LOC: JP.ED 11:24
DX: K70.10 Alcoholic hepatitis without ascites (principal); F10.90 Alcohol use, unspecified, uncomplicated; K80.41 Calculus of bile duct with cholecystitis, unspecified, with obstruction; I48.0 Paroxysmal atrial fibrillation; D69.6 Thrombocytopenia, unspecified; I10 Essential (primary) hypertension; I48.91 Unspecified atrial fibrillation; E66.9 Obesity, unspecified; Z68.30 Body mass index [BMI] 30.0-30.9, adult; Z95.1 Presence of aortocoronary bypass graft; Z79.01 Long term (current) use of anticoagulants; Z79.899 Other long term (current) drug therapy; Z20.822 Contact with and (suspected) exposure to COVID-19
CPT/HCPCS: 0241U; 36415; 36430; 74177; 76705; 80048; 80053; 80076; 80307; 82248; 82947; 83605; 83690; 84145; 84484; 85025; 85610; 86140; 86850; 86900; 86901; 87040; 93005; 96361; 96365; 96366; 96367; 96368; 96375; 96376; 99285; A9270; J2543; J2765; J3430; J3480; J3490; J7030; P9034; Q9967

== ENCOUNTER 2024-06-11 11:05 | Emergency (ER) | payer MEDICAID ==
[2024-06-11] MEDS ORDERED: Bacitracin Oint 1 GM U/D Packet TOP ONE (11:33)
[2024-06-11 11:34] VITALS: BP 100/70; PULSE 86
== END 2024-06-11 13:56 | disposition home or self-care (01) ==
LOC: JP.ED 11:05
DX: S51.012A Laceration without foreign body of left elbow, initial encounter (principal); I48.91 Unspecified atrial fibrillation; I10 Essential (primary) hypertension; E66.9 Obesity, unspecified; Z68.33 Body mass index [BMI] 33.0-33.9, adult; Z79.01 Long term (current) use of anticoagulants; Z79.899 Other long term (current) drug therapy; Z88.8 Allergy status to other drugs, medicaments and biological substances; W19.XXXA Unspecified fall, initial encounter
CPT/HCPCS: 70450; 70450-26; 72125; 72125-26; 76377; 76377-26; 99283; 99284

== ENCOUNTER 2024-07-09 11:47 | Emergency (ER) | payer MEDICAID ==
[2024-07-09] MEDS ORDERED: Sodium Chloride 0.9% 10 ML Syringe FLUSH PRN (11:54)
[2024-07-09 12:11] LABS: BASOPHILS ABSOLUTE AUTO 0.04 K/uL (0.00-0.10); BASOPHILS PERCENT AUTO 1.1 % (0.1-1.3); EOSINOPHILS ABSOLUTE AUTO 0.08 K/uL (0.00-0.40); EOSINOPHILS PERCENT AUTO 2.2 % (0.0-5.4); IMMATURE GRAN PERCENT AUTO 0.3 % (0.0-0.7); LYMPHOCYTES ABSOLUTE AUTO 1.04 K/uL (0.8-3.3); LYMPHOCYTES PERCENT AUTO 29.1 % (11.4-47.7); MEAN CORPUSCULAR HEMOGLOBIN 29.6 pg (31.6-35.5); MEAN CORPUSCULAR HGB CONC 33.3 g/dL (31.6-35.5); MEAN CORPUSCULAR VOLUME 88.8 fL (81.4-99.0); MONOCYTES ABSOLUTE AUTO 0.33 K/uL (0.20-0.90); MONOCYTES PERCENT AUTO 9.2 % (3.3-12.6); NEUTROPHILS ABSOLUTE AUTO 2.08 K/uL (1.0-7.6); NEUTROPHILS PERCENT AUTO 58.1 % (40.0-78.1); PLATELET COUNT,PLT 94 K/uL (130-375); RED BLOOD CELL COUNT 3.04 M/uL (4.14-5.76); WHITE BLOOD CELL COUNT,WBC 3.6 K/uL (3.2-11.0)
[2024-07-09 12:15] LABS: IMMATURE GRAN ABSOLUTE AUTO 0.01 K/uL (0.00-0.23)
[2024-07-09 12:37] LABS: A/G RATIO 0.4 (1.2-2.2); ALANINE AMINOTRANSFERASE,ALT 14 U/L (12-78); ALBUMIN 1.4 g/dL (3.4-5.0); ALKALINE PHOSPHATASE 120 U/L (46-116); ASPARTATE AMNIOTRANSFERASE,AST 28 U/L (15-37); BILIRUBIN TOTAL 1.9 mg/dL (0.2-1.0); BLOOD UREA NITROGEN,BUN 5 mg/dL (7-18); CARBON DIOXIDE,CO2 28 mmol/L (21-32); CHLORIDE,CL 106 mmol/L (100-108); CREATININE 1.1 mg/dL (0.8-1.3); EST CRCL DRUG DOSING (CG) 84.07 mL/min; ESTIMATED GFR 77 mL/min (>60); GLUCOSE RANDOM 74 mg/dL (74-106); PROTEIN TOTAL,TP 4.7 g/dL (6.4-8.2); SODIUM,NA 138 mmol/L (140-148)
[2024-07-09] MEDS: Sodium Chloride 0.9% 1,000 ML IV ONE (12:46)
[2024-07-09 13:01] LABS: C-REACTIVE PROTEIN 0.65 mg/dL (<0.50); MAGNESIUM 1.7 mg/dL (1.8-2.4)
[2024-07-09 13:14] LABS: LYME AB IgG Negative (Negative); LYME AB IgM Negative (Negative)
[2024-07-09 14:26] LABS: TROPONIN I HIGH SENSITIVITY 7.2 pg/mL (<=60.3)
[2024-07-09 16:01] VITALS: BP 101/61; PULSE 82
== END 2024-07-09 17:36 | disposition home or self-care (01) ==
LOC: JP.ED 11:47
DX: D64.9 Anemia, unspecified (principal); D69.6 Thrombocytopenia, unspecified; E88.09 Other disorders of plasma-protein metabolism, not elsewhere classified; R94.31 Abnormal electrocardiogram [ECG] [EKG]; I48.0 Paroxysmal atrial fibrillation; I10 Essential (primary) hypertension; E66.9 Obesity, unspecified; Z98.84 Bariatric surgery status; Z88.8 Allergy status to other drugs, medicaments and biological substances; Z79.01 Long term (current) use of anticoagulants; Z79.899 Other long term (current) drug therapy; Z68.33 Body mass index [BMI] 33.0-33.9, adult
CPT/HCPCS: 36415; 71045; 80053; 80307; 82140; 83735; 83880; 84145; 84443; 84484; 85025; 86140; 86618; 87428; 93005; 96360; 99285; J7030; 87468; 87469; 87484; 87798

== ENCOUNTER 2024-09-16 19:36 | Inpatient (IN) | payer MEDICAID ==
[2024-09-16] MEDS ORDERED: Sodium Chloride 0.9% 10 ML Syringe FLUSH PRN (19:52)
[2024-09-16 20:21] LABS: BASOPHILS ABSOLUTE AUTO 0.04 K/uL (0.00-0.10); BASOPHILS PERCENT AUTO 0.9 % (0.1-1.3); EOSINOPHILS PERCENT AUTO 2.3 % (0.0-5.4); HEMATOCRIT 24.4 % (38.4-49.7); HEMOGLOBIN 7.8 g/dL (12.9-16.9); IMMATURE GRAN PERCENT AUTO 0.2 % (0.0-0.7); LYMPHOCYTES ABSOLUTE AUTO 1.46 K/uL (0.8-3.3); LYMPHOCYTES PERCENT AUTO 34.1 % (11.4-47.7); MEAN CORPUSCULAR HEMOGLOBIN 28.3 pg (31.6-35.5); MEAN CORPUSCULAR VOLUME 88.4 fL (81.4-99.0); MONOCYTES ABSOLUTE AUTO 0.41 K/uL (0.20-0.90); MONOCYTES PERCENT AUTO 9.6 % (3.3-12.6); NEUTROPHILS ABSOLUTE AUTO 2.26 K/uL (1.0-7.6); NEUTROPHILS PERCENT AUTO 52.9 % (40.0-78.1); PLATELET COUNT,PLT 97 K/uL (130-375); RED BLOOD CELL COUNT 2.76 M/uL (4.14-5.76); WHITE BLOOD CELL COUNT,WBC 4.3 K/uL (3.2-11.0)
[2024-09-16 20:22] LABS: IMMATURE GRAN ABSOLUTE AUTO 0.01 K/uL (0.00-0.23)
[2024-09-16 20:39] LABS: INR 1.5; PROTHROMBIN TIME 15.6 sec (9.2-10.6)
[2024-09-16 20:43] LABS: A/G RATIO 0.4 (1.2-2.2); ALANINE AMINOTRANSFERASE,ALT 9 U/L (12-78); ALBUMIN 1.5 g/dL (3.4-5.0); ALKALINE PHOSPHATASE 88 U/L (46-116); ASPARTATE AMNIOTRANSFERASE,AST 24 U/L (15-37); BILIRUBIN TOTAL 1.9 mg/dL (0.2-1.0); BLOOD UREA NITROGEN,BUN 7 mg/dL (7-18); C-REACTIVE PROTEIN 0.94 mg/dL (<0.50); CALCIUM 7.9 mg/dL (8.5-10.1); CARBON DIOXIDE,CO2 25 mmol/L (21-32); CHLORIDE,CL 107 mmol/L (100-108); CREATININE 1.4 mg/dL (0.8-1.3); ESTIMATED GFR 58 mL/min (>60); GLUCOSE RANDOM 77 mg/dL (74-106); POTASSIUM,K 4.5 mmol/L (3.6-5.2); PROTEIN TOTAL,TP 5.1 g/dL (6.4-8.2); SODIUM,NA 138 mmol/L (140-148)
[2024-09-16 20:45] LABS: ANION GAP 10.5 mmol/L (5.0-14.0); DIGOXIN < 0.20 ng/mL (0.90-2.00)
[2024-09-16 23:10] LABS: APPEARANCE,URINE SLIGHTLY CLOUDY (CLEAR)
[2024-09-16 23:16] LABS: COLOR,URINE BROWN (YELLOW)
[2024-09-16 23:17] LABS: AMORPHOUS SEDIMENT,URINE NOT SEEN; BACTERIA,URINE FEW; EPITHELIAL CELLS,URINE FEW; MUCUS,URINE FEW; RBC,URINE 0-5 (0-5); WBC,URINE 0-5 (0-5)
[2024-09-17] MEDS ORDERED: SIMETHICONE 80 MG PO PRN (01:48)
[2024-09-17] MEDS: Warfarin 2.5 MG Tab PO SCH (02:37)
[2024-09-17 05:55] LABS: HEMATOCRIT 22.9 % (38.4-49.7); HEMOGLOBIN 7.5 g/dL (12.9-16.9); MEAN CORPUSCULAR HEMOGLOBIN 28.4 pg (31.6-35.5); MEAN CORPUSCULAR HGB CONC 32.8 g/dL (31.6-35.5); MEAN CORPUSCULAR VOLUME 86.7 fL (81.4-99.0); RED BLOOD CELL COUNT 2.64 M/uL (4.14-5.76); WHITE BLOOD CELL COUNT,WBC 4.2 K/uL (3.2-11.0)
[2024-09-17 06:09] LABS: ANION GAP 9.6 mmol/L (5.0-14.0); CALCIUM 7.6 mg/dL (8.5-10.1); CREATININE 1.3 mg/dL (0.8-1.3); EST CRCL DRUG DOSING (CG) 71.13 mL/min; POTASSIUM,K 4.6 mmol/L (3.6-5.2)
[2024-09-17] MEDS: Midodrine 5 MG Tab PO SCH (08:17)
[2024-09-17] MEDS: Furosemide 40 MG Tab PO SCH (08:18)
[2024-09-17 08:46] LABS: PERCENT FE SATURATION 118 % (20-55); TOTAL IRON BINDING CAPACITY 51 ug/dl (250-450)
[2024-09-17 08:47] LABS: IRON,FE 60 ug/dL (65-175)
[2024-09-17] MEDS: Spironolactone 25 MG Tab PO SCH (09:01)
[2024-09-17] MEDS: Citalopram 20 MG Tab PO SCH (09:01)
[2024-09-17] MEDS: Pantoprazole 40 MG Tab.CR PO SCH (09:02)
[2024-09-17] MEDS: Cyanocobalamin (Vitamin B12) 1,000 MCG Tab PO SCH (09:04)
[2024-09-17] MEDS: Vitamin B6-pyridOXINE 50 MG Tab PO SCH (09:05)
[2024-09-17] MEDS: Cholecalciferol (Vitamin D3) 25 MCG Tab PO SCH (09:06)
[2024-09-17] MEDS: Ondansetron 4 MG Tab.DIS PO PRN (11:36)
[2024-09-17] MEDS: Albumin Human 25 GM in Premix Bag 1 BAG IV ONE (12:57)
[2024-09-17] MEDS ORDERED: Warfarin 5 MG Tab PO SCH (13:00)
[2024-09-17] MEDS: Digoxin 125 MCG Tab PO SCH (13:03)
[2024-09-17] MEDS ORDERED: Furosemide 20 MG/2 ML VIAL IVPUSH SCH (15:00)
[2024-09-17] MEDS: Furosemide 40 MG/4 ML VIAL IVPUSH SCH (15:31)
[2024-09-18 06:00] LABS: HEMATOCRIT 19.9 % (38.4-49.7); MEAN CORPUSCULAR HEMOGLOBIN 28.8 pg (31.6-35.5); MEAN CORPUSCULAR HGB CONC 33.2 g/dL (31.6-35.5); MEAN CORPUSCULAR VOLUME 86.9 fL (81.4-99.0); RED BLOOD CELL COUNT 2.29 M/uL (4.14-5.76); WHITE BLOOD CELL COUNT,WBC 3.4 K/uL (3.2-11.0)
[2024-09-18 06:08] LABS: HEMOGLOBIN 6.6 g/dL (12.9-16.9)
[2024-09-18 06:13] LABS: CALCIUM 7.8 mg/dL (8.5-10.1); CREATININE 1.3 mg/dL (0.8-1.3); EST CRCL DRUG DOSING (CG) 71.13 mL/min; POTASSIUM,K 4.5 mmol/L (3.6-5.2)
[2024-09-18 06:16] LABS: ANION GAP 7.5 mmol/L (5.0-14.0)
[2024-09-18] MEDS: Furosemide 40 MG/4 ML VIAL IVPUSH SCH (07:37)
[2024-09-18] MEDS: Simethicone 125 MG Tab.Chew PO PRN (09:48)
[2024-09-18] MEDS: Sodium Ferric Gluconate Cmplex 250 MG in Sodium Chloride 0.9% 100 ML IV ONE (09:59)
[2024-09-18] MEDS: Scopalamine 1mg/3day Transdermal Patch TRDERM SCH (12:05)
[2024-09-18] MEDS ORDERED: Warfarin 2.5 MG Tab PO SCH (13:00)
[2024-09-18] MEDS: Albumin Human 25 GM in Premix Bag 1 BAG IV ONE (15:08)
[2024-09-19] MEDS: LORazepam 2 MG/ML SDV IVPUSH PRN (03:41)
[2024-09-19 05:43] LABS: HEMATOCRIT 25.4 % (38.4-49.7); HEMOGLOBIN 8.4 g/dL (12.9-16.9); MEAN CORPUSCULAR HGB CONC 33.1 g/dL (31.6-35.5); MEAN CORPUSCULAR VOLUME 87.6 fL (81.4-99.0); RED BLOOD CELL COUNT 2.9 M/uL (4.14-5.76); WHITE BLOOD CELL COUNT,WBC 4.4 K/uL (3.2-11.0)
[2024-09-19 06:04] LABS: A/G RATIO 0.6 (1.2-2.2); ALANINE AMINOTRANSFERASE,ALT 8 U/L (12-78); ALBUMIN 1.8 g/dL (3.4-5.0); ALKALINE PHOSPHATASE 75 U/L (46-116); ANION GAP 7.1 mmol/L (5.0-14.0); ASPARTATE AMNIOTRANSFERASE,AST 23 U/L (15-37); BILIRUBIN TOTAL 2.8 mg/dL (0.2-1.0); BLOOD UREA NITROGEN,BUN 7 mg/dL (7-18); CALCIUM 8.2 mg/dL (8.5-10.1); CARBON DIOXIDE,CO2 28 mmol/L (21-32); CHLORIDE,CL 106 mmol/L (100-108); CREATININE 1.5 mg/dL (0.8-1.3); EST CRCL DRUG DOSING (CG) 61.65 mL/min; ESTIMATED GFR 53 mL/min (>60); GLUCOSE RANDOM 66 mg/dL (74-106); MAGNESIUM 1.7 mg/dL (1.8-2.4); POTASSIUM,K 3.7 mmol/L (3.6-5.2); PROTEIN TOTAL,TP 5.1 g/dL (6.4-8.2); SODIUM,NA 141 mmol/L (140-148)
[2024-09-19] MEDS: Magnesium Sulf/Wat 2 GM/50 mL 2 GM in Premix Bag 1 BAG IV ONE (08:53)
[2024-09-19] MEDS: Gabapentin 300 MG Cap PO SCH (11:29)
[2024-09-19] MEDS: Albumin Human 25 GM in Premix Bag 1 BAG IV ONE (13:18)
[2024-09-20 05:53] LABS: HEMATOCRIT 24.3 % (38.4-49.7); HEMOGLOBIN 8.1 g/dL (12.9-16.9); MEAN CORPUSCULAR HEMOGLOBIN 28.9 pg (31.6-35.5); MEAN CORPUSCULAR HGB CONC 33.3 g/dL (31.6-35.5); MEAN CORPUSCULAR VOLUME 86.8 fL (81.4-99.0); RED BLOOD CELL COUNT 2.8 M/uL (4.14-5.76); WHITE BLOOD CELL COUNT,WBC 4.2 K/uL (3.2-11.0)
[2024-09-20 06:09] LABS: CALCIUM 8.3 mg/dL (8.5-10.1); CREATININE 1.6 mg/dL (0.8-1.3); EST CRCL DRUG DOSING (CG) 57.8 mL/min; POTASSIUM,K 3.5 mmol/L (3.6-5.2)
[2024-09-20 06:14] LABS: ANION GAP 8.5 mmol/L (5.0-14.0)
[2024-09-20] MEDS: Potassium Chloride 20 MEQ Tab.ER PO ONE (11:17)
[2024-09-20] MEDS: Folic Acid 1 MG Tab PO SCH (11:17)
[2024-09-20] MEDS: Thiamine 100 MG Tab PO SCH (11:17)
[2024-09-20 12:13] LABS: INR 1.6
[2024-09-20 14:11] LABS: BODY FLUID TYPE PERITONEAL FLUID
[2024-09-20 14:16] LABS: ALBUMIN,BODY FLUID < 0.6; BODY FLUID TYPE PERITONEAL FLUID; GLUCOSE,BODY FLUID 76 mg/dL; LIPASE,BODY FLUID 1 U/L
[2024-09-20 14:21] LABS: BODY FLUID TYPE PERITONEAL FLUID; LACTATE DEHYDROGENASE,BODY FL 48 IU/L
[2024-09-20 14:22] LABS: PROTEIN,BODY FLUID < 2 g/dL
[2024-09-20 15:20] LABS: MONONUCLEAR, BODY FLUID 93 %; POLYMORPHONUCLEAR, BODY FLUID 7 %; RBC,BODY FLUID 10 /ul; WBC BODY FLUID 31 /ul
[2024-09-20 15:26] LABS: BODY FLUID TYPE PERITONEAL FLUID
[2024-09-20] MEDS: Loperamide 2 MG Cap PO PRN (15:39)
[2024-09-21 06:44] LABS: INR 1.6; PROTHROMBIN TIME 16.4 sec (9.2-10.6)
[2024-09-21 06:52] LABS: A/G RATIO 0.6 (1.2-2.2); ALANINE AMINOTRANSFERASE,ALT 8 U/L (12-78); ALBUMIN 1.7 g/dL (3.4-5.0); ALKALINE PHOSPHATASE 64 U/L (46-116); ASPARTATE AMNIOTRANSFERASE,AST 24 U/L (15-37); BILIRUBIN TOTAL 1.7 mg/dL (0.2-1.0); BLOOD UREA NITROGEN,BUN 7 mg/dL (7-18); CALCIUM 8.1 mg/dL (8.5-10.1); CARBON DIOXIDE,CO2 29 mmol/L (21-32); CHLORIDE,CL 108 mmol/L (100-108); CREATININE 1.5 mg/dL (0.8-1.3); EST CRCL DRUG DOSING (CG) 61.65 mL/min; ESTIMATED GFR 53 mL/min (>60); GLUCOSE RANDOM 60 mg/dL (74-106); POTASSIUM,K 3.4 mmol/L (3.6-5.2); PROTEIN TOTAL,TP 4.4 g/dL (6.4-8.2); SODIUM,NA 141 mmol/L (140-148)
[2024-09-21 06:53] LABS: ANION GAP 7.4 mmol/L (5.0-14.0)
[2024-09-21] MEDS: Potassium Chloride 20 MEQ Tab.ER PO ONE ×2 (09:13→16:17)
[2024-09-21] MEDS: Warfarin 5 MG Tab PO SCH (13:02)
[2024-09-22 06:19] LABS: INR 1.7; PROTHROMBIN TIME 16.6 sec (9.2-10.6)
[2024-09-22 06:20] LABS: ANION GAP 4.1 mmol/L (5.0-14.0); CALCIUM 8.1 mg/dL (8.5-10.1); CREATININE 1.5 mg/dL (0.8-1.3); EST CRCL DRUG DOSING (CG) 61.65 mL/min; MAGNESIUM 1.8 mg/dL (1.8-2.4); POTASSIUM,K 3.7 mmol/L (3.6-5.2)
[2024-09-22] MEDS: Acetaminophen 325 MG Tab PO PRN (10:53)
[2024-09-22] MEDS: Potassium Chloride 20 MEQ Tab.ER PO ONE (16:25)
[2024-09-23 06:20] LABS: INR 1.8; PROTHROMBIN TIME 17.7 sec (9.2-10.6)
[2024-09-23 06:21] LABS: ANION GAP 6.9 mmol/L (5.0-14.0); CALCIUM 7.9 mg/dL (8.5-10.1); CREATININE 1.5 mg/dL (0.8-1.3); EST CRCL DRUG DOSING (CG) 61.65 mL/min; MAGNESIUM 1.6 mg/dL (1.8-2.4); POTASSIUM,K 3.9 mmol/L (3.6-5.2)
[2024-09-23] MEDS: Magnesium Oxide 400 MG Tab PO SCH (10:02)
[2024-09-23] MEDS: Magnesium Sulf/Wat 2 GM/50 mL 2 GM in Premix Bag 1 BAG IV SCH (10:02)
[2024-09-24 05:48] LABS: HEMATOCRIT 24.2 % (38.4-49.7); HEMOGLOBIN 7.9 g/dL (12.9-16.9); MEAN CORPUSCULAR HEMOGLOBIN 28.7 pg (31.6-35.5); MEAN CORPUSCULAR HGB CONC 32.6 g/dL (31.6-35.5); RED BLOOD CELL COUNT 2.75 M/uL (4.14-5.76); WHITE BLOOD CELL COUNT,WBC 3.7 K/uL (3.2-11.0)
[2024-09-24 06:04] LABS: ANION GAP 3.9 mmol/L (5.0-14.0); CREATININE 1.6 mg/dL (0.8-1.3); EST CRCL DRUG DOSING (CG) 57.8 mL/min; POTASSIUM,K 4.1 mmol/L (3.6-5.2)
[2024-09-24 06:05] LABS: PROTHROMBIN TIME 19.5 sec (9.2-10.6)
[2024-09-25 06:12] LABS: CALCIUM 7.9 mg/dL (8.5-10.1); CREATININE 1.8 mg/dL (0.8-1.3); EST CRCL DRUG DOSING (CG) 51.38 mL/min; POTASSIUM,K 4.6 mmol/L (3.6-5.2)
[2024-09-25 06:15] LABS: INR 2.8; PROTHROMBIN TIME 27.6 sec (9.2-10.6)
[2024-09-25] MEDS: Warfarin 2.5 MG Tab PO SCH (12:08)
[2024-09-26 06:09] LABS: ANION GAP 2.9 mmol/L (5.0-14.0); CALCIUM 7.9 mg/dL (8.5-10.1); CREATININE 1.8 mg/dL (0.8-1.3); EST CRCL DRUG DOSING (CG) 51.38 mL/min
[2024-09-26 07:12] LABS: INR 2.9; PROTHROMBIN TIME 28.7 sec (9.2-10.6)
[2024-09-26] MEDS: Ondansetron 4 MG/2 ML SDV IVPUSH PRN (08:15)
[2024-09-26] MEDS: LORazepam 2 MG/ML SDV IVPUSH ONE (12:47)
[2024-09-27 06:02] LABS: INR 3.9; PROTHROMBIN TIME 37.6 sec (9.2-10.6)
[2024-09-27 06:16] LABS: ANION GAP 1.2 mmol/L (5.0-14.0); CALCIUM 7.7 mg/dL (8.5-10.1); CREATININE 1.8 mg/dL (0.8-1.3); EST CRCL DRUG DOSING (CG) 51.38 mL/min; POTASSIUM,K 4.4 mmol/L (3.6-5.2)
[2024-09-27] MEDS: Lactulose Soln 10 GM/15 ML 15 ML UD Cup PO SCH (11:59)
[2024-09-27] MEDS: Nystatin Crm 15 GM Tube TOP SCH (14:36)
[2024-09-27] MEDS: Gabapentin 300 MG Cap PO SCH (21:16)
[2024-09-28 05:57] LABS: HEMATOCRIT 26.9 % (38.4-49.7); HEMOGLOBIN 8.7 g/dL (12.9-16.9); MEAN CORPUSCULAR HEMOGLOBIN 28.8 pg (31.6-35.5); MEAN CORPUSCULAR HGB CONC 32.3 g/dL (31.6-35.5); MEAN CORPUSCULAR VOLUME 89.1 fL (81.4-99.0); RED BLOOD CELL COUNT 3.02 M/uL (4.14-5.76); WHITE BLOOD CELL COUNT,WBC 4.3 K/uL (3.2-11.0)
[2024-09-28 06:09] LABS: PROTHROMBIN TIME 39.9 sec (9.2-10.6)
[2024-09-28 06:14] LABS: INR 4.1
[2024-09-28 06:22] LABS: A/G RATIO 0.5 (1.2-2.2); ALANINE AMINOTRANSFERASE,ALT 12 U/L (12-78); ALBUMIN 1.6 g/dL (3.4-5.0); ALKALINE PHOSPHATASE 65 U/L (46-116); ASPARTATE AMNIOTRANSFERASE,AST 25 U/L (15-37); BILIRUBIN TOTAL 1.1 mg/dL (0.2-1.0); BLOOD UREA NITROGEN,BUN 21 mg/dL (7-18); CARBON DIOXIDE,CO2 31 mmol/L (21-32); CHLORIDE,CL 109 mmol/L (100-108); CREATININE 1.7 mg/dL (0.8-1.3); ESTIMATED GFR 46 mL/min (>60); GLUCOSE RANDOM 60 mg/dL (74-106); POTASSIUM,K 4.6 mmol/L (3.6-5.2); PROTEIN TOTAL,TP 4.7 g/dL (6.4-8.2); SODIUM,NA 142 mmol/L (140-148); T4 FREE 0.84 ng/dL (0.76-1.46)
[2024-09-28 06:23] LABS: ANION GAP 6.6 mmol/L (5.0-14.0)
[2024-09-28] MEDS: Albumin Human 25 GM in Premix Bag 1 BAG IV ONE (14:05)
[2024-09-28] MEDS: Lactulose Soln 10 GM/15 ML 15 ML UD Cup PO SCH (14:06)
[2024-09-29 05:50] LABS: HEMATOCRIT 24.2 % (38.4-49.7); HEMOGLOBIN 7.9 g/dL (12.9-16.9); MEAN CORPUSCULAR HEMOGLOBIN 28.9 pg (31.6-35.5); MEAN CORPUSCULAR HGB CONC 32.6 g/dL (31.6-35.5); MEAN CORPUSCULAR VOLUME 88.6 fL (81.4-99.0); RED BLOOD CELL COUNT 2.73 M/uL (4.14-5.76); WHITE BLOOD CELL COUNT,WBC 3.7 K/uL (3.2-11.0)
[2024-09-29 06:01] LABS: ANION GAP 2.8 mmol/L (5.0-14.0); CALCIUM 7.9 mg/dL (8.5-10.1); CREATININE 1.6 mg/dL (0.8-1.3); EST CRCL DRUG DOSING (CG) 57.82 mL/min; POTASSIUM,K 4.4 mmol/L (3.6-5.2)
[2024-09-29 06:03] LABS: PROTHROMBIN TIME 39.5 sec (9.2-10.6)
[2024-09-29 06:06] LABS: INR 4.1
[2024-09-29] MEDS: 1: AA 5%/Calcium/D15W/Lytes 1,000 ML with MVI, Adult with Vitamin K 10 ML, Zinc/Copper/M IV SCH (13:00)
[2024-09-29] MEDS: Albumin Human 25 GM in Premix Bag 1 BAG IV ONE (13:01)
[2024-09-29] MEDS: Fat Emulsion 100 ML IV ONE (16:26)
[2024-09-30 06:00] LABS: HEMATOCRIT 24.3 % (38.4-49.7); HEMOGLOBIN 7.8 g/dL (12.9-16.9); MEAN CORPUSCULAR HEMOGLOBIN 28.8 pg (31.6-35.5); MEAN CORPUSCULAR HGB CONC 32.1 g/dL (31.6-35.5); MEAN CORPUSCULAR VOLUME 89.7 fL (81.4-99.0); RED BLOOD CELL COUNT 2.71 M/uL (4.14-5.76); WHITE BLOOD CELL COUNT,WBC 4.5 K/uL (3.2-11.0)
[2024-09-30 06:15] LABS: CALCIUM 7.9 mg/dL (8.5-10.1); CREATININE 1.5 mg/dL (0.8-1.3); DIGOXIN 1.8 ng/mL (0.90-2.00); EST CRCL DRUG DOSING (CG) 61.68 mL/min; MAGNESIUM 2.2 mg/dL (1.8-2.4); PHOSPHORUS 2.4 mg/dL (2.5-4.9); POTASSIUM,K 4.3 mmol/L (3.6-5.2)
[2024-09-30 06:22] LABS: INR 3.1; PROTHROMBIN TIME 30.3 sec (9.2-10.6)
[2024-09-30 06:27] LABS: ANION GAP 3.3 mmol/L (5.0-14.0)
[2024-09-30] MEDS: Lactulose Soln 10 GM/15 ML 15 ML UD Cup PO ONE (09:25)
[2024-09-30] MEDS ORDERED: Central Total Parenteral Nutrition Bag SCH (10:30)
[2024-09-30] MEDS: Bumetanide 1 MG/4 ML MDV IVPUSH ONE (11:31)
[2024-09-30] MEDS: Fat Emulsion 100 ML IV SCH (16:24)
[2024-10-01 06:11] LABS: PROTHROMBIN TIME 20.1 sec (9.2-10.6)
[2024-10-01 06:14] LABS: CREATININE 1.4 mg/dL (0.8-1.3); EST CRCL DRUG DOSING (CG) 66.08 mL/min; POTASSIUM,K 4.6 mmol/L (3.6-5.2)
[2024-10-01 06:20] LABS: ANION GAP 3.6 mmol/L (5.0-14.0)
[2024-10-01] MEDS: Bumetanide 1 MG/4 ML MDV IVPUSH ONE (11:12)
[2024-10-01] MEDS: cefTRIAXone 2 GM in Sodium Chloride 0.9% 50 ML IV SCH (11:14)
[2024-10-01] MEDS ORDERED: Central Total Parenteral Nutrition Bag SCH (11:30)
[2024-10-01] MEDS ORDERED: Warfarin 2.5 MG Tab PO SCH (13:00)
[2024-10-01] MEDS: Warfarin** 1 MG TABLET PO SCH (13:56)
[2024-10-02 05:42] LABS: HEMATOCRIT 21.5 % (38.4-49.7); MEAN CORPUSCULAR HEMOGLOBIN 28.6 pg (31.6-35.5); MEAN CORPUSCULAR HGB CONC 32.1 g/dL (31.6-35.5); MEAN CORPUSCULAR VOLUME 89.2 fL (81.4-99.0); RED BLOOD CELL COUNT 2.41 M/uL (4.14-5.76)
[2024-10-02 05:47] LABS: HEMOGLOBIN 6.9 g/dL (12.9-16.9)
[2024-10-02 05:57] LABS: INR 1.6; PROTHROMBIN TIME 15.7 sec (9.2-10.6)
[2024-10-02 06:04] LABS: A/G RATIO 0.7 (1.2-2.2); ALANINE AMINOTRANSFERASE,ALT 10 U/L (12-78); ALBUMIN 1.8 g/dL (3.4-5.0); ALKALINE PHOSPHATASE 43 U/L (46-116); ANION GAP 3.7 mmol/L (5.0-14.0); ASPARTATE AMNIOTRANSFERASE,AST 20 U/L (15-37); BILIRUBIN TOTAL 0.8 mg/dL (0.2-1.0); BLOOD UREA NITROGEN,BUN 41 mg/dL (7-18); C-REACTIVE PROTEIN 0.89 mg/dL (<0.50); CALCIUM 7.9 mg/dL (8.5-10.1); CARBON DIOXIDE,CO2 32 mmol/L (21-32); CHLORIDE,CL 104 mmol/L (100-108); CREATININE 1.5 mg/dL (0.8-1.3); EST CRCL DRUG DOSING (CG) 61.68 mL/min; ESTIMATED GFR 53 mL/min (>60); GLUCOSE RANDOM 87 mg/dL (74-106); MAGNESIUM 1.9 mg/dL (1.8-2.4); POTASSIUM,K 4.7 mmol/L (3.6-5.2); PROTEIN TOTAL,TP 4.4 g/dL (6.4-8.2); SODIUM,NA 135 mmol/L (140-148)
[2024-10-02] MEDS ORDERED: Central Total Parenteral Nutrition Bag SCH (09:15)
[2024-10-02] MEDS: Bumetanide 1 MG/4 ML MDV IVPUSH ONE (12:07)
[2024-10-02] MEDS: Warfarin** 1 MG TABLET PO SCH (12:07)
[2024-10-03 06:01] LABS: INR 1.5; PROTHROMBIN TIME 14.7 sec (9.2-10.6)
[2024-10-03 06:02] LABS: CALCIUM 7.8 mg/dL (8.5-10.1); CREATININE 1.6 mg/dL (0.8-1.3); EST CRCL DRUG DOSING (CG) 57.82 mL/min; POTASSIUM,K 4.3 mmol/L (3.6-5.2)
[2024-10-03 06:04] LABS: ANION GAP -0.7 mmol/L (5.0-14.0)
[2024-10-03 06:11] LABS: IRON,FE 34 ug/dL (65-175); PERCENT FE SATURATION 31 % (20-55); TOTAL IRON BINDING CAPACITY 111 ug/dl (250-450)
[2024-10-03] MEDS: Lactulose Soln 10 GM/15 ML 15 ML UD Cup PO SCH (09:54)
[2024-10-03] MEDS ORDERED: Central Total Parenteral Nutrition Bag SCH (10:00)
[2024-10-03] MEDS: Sodium Ferric Gluconate Cmplex 250 MG in Sodium Chloride 0.9% 100 ML IV ONE (11:40)
[2024-10-03] MEDS ORDERED: Warfarin** 1 MG TABLET PO ONE (13:00)
[2024-10-03] MEDS: Warfarin 5 MG Tab PO ONE (13:54)
[2024-10-04] MEDS: AA 5%/Calcium/D15W/Lytes 2,000 ML with MVI, Adult with Vitamin K 10 ML, Zinc/Copper/Man... IV SCH (00:50)
[2024-10-04 05:48] LABS: HEMATOCRIT 23.1 % (38.4-49.7); HEMOGLOBIN 7.5 g/dL (12.9-16.9); MEAN CORPUSCULAR HEMOGLOBIN 29.2 pg (31.6-35.5); MEAN CORPUSCULAR HGB CONC 32.5 g/dL (31.6-35.5); MEAN CORPUSCULAR VOLUME 89.9 fL (81.4-99.0); RED BLOOD CELL COUNT 2.57 M/uL (4.14-5.76); WHITE BLOOD CELL COUNT,WBC 4.3 K/uL (3.2-11.0)
[2024-10-04 06:05] LABS: INR 1.4; PROTHROMBIN TIME 14.2 sec (9.2-10.6)
[2024-10-04 06:11] LABS: A/G RATIO 0.6 (1.2-2.2); ALANINE AMINOTRANSFERASE,ALT 12 U/L (12-78); ALBUMIN 1.6 g/dL (3.4-5.0); ALKALINE PHOSPHATASE 37 U/L (46-116); ASPARTATE AMNIOTRANSFERASE,AST 28 U/L (15-37); BILIRUBIN TOTAL 0.5 mg/dL (0.2-1.0); BLOOD UREA NITROGEN,BUN 45 mg/dL (7-18); CALCIUM 7.8 mg/dL (8.5-10.1); CARBON DIOXIDE,CO2 30 mmol/L (21-32); CHLORIDE,CL 105 mmol/L (100-108); CREATININE 1.4 mg/dL (0.8-1.3); EST CRCL DRUG DOSING (CG) 66.08 mL/min; ESTIMATED GFR 58 mL/min (>60); GLUCOSE RANDOM 88 mg/dL (74-106); POTASSIUM,K 4.3 mmol/L (3.6-5.2); PROTEIN TOTAL,TP 4.5 g/dL (6.4-8.2); SODIUM,NA 139 mmol/L (140-148)
[2024-10-04 06:17] LABS: ANION GAP 8.3 mmol/L (5.0-14.0); C-REACTIVE PROTEIN < 0.50 mg/dL (<0.50)
[2024-10-04] MEDS: Bumetanide 1 MG/4 ML MDV IVPUSH SCH (09:51)
[2024-10-04] MEDS ORDERED: Central Total Parenteral Nutrition Bag SCH (12:00)
[2024-10-04] MEDS ORDERED: Warfarin** 1 MG TABLET PO SCH (13:00)
[2024-10-04] MEDS: Warfarin 2.5 MG Tab PO SCH (13:21)
[2024-10-04] MEDS: MVI, Adult with Vitamin K 10 ML, Zinc/Copper/Manganese/Selenium 1 ML in AA 5%/Calcium/D... IV SCH (13:26)
[2024-10-05 05:56] LABS: ANION GAP 2.8 mmol/L (5.0-14.0); CALCIUM 8.1 mg/dL (8.5-10.1); CREATININE 1.4 mg/dL (0.8-1.3); EST CRCL DRUG DOSING (CG) 66.08 mL/min; POTASSIUM,K 4.1 mmol/L (3.6-5.2)
[2024-10-05] MEDS ORDERED: Central Total Parenteral Nutrition Bag SCH (11:30)
[2024-10-06 06:09] LABS: CALCIUM 7.9 mg/dL (8.5-10.1); CREATININE 1.4 mg/dL (0.8-1.3); EST CRCL DRUG DOSING (CG) 66.08 mL/min; MAGNESIUM 1.9 mg/dL (1.8-2.4); POTASSIUM,K 3.8 mmol/L (3.6-5.2)
[2024-10-06 06:10] LABS: ANION GAP 6.8 mmol/L (5.0-14.0)
[2024-10-06] MEDS ORDERED: Central Total Parenteral Nutrition Bag SCH (11:45)
[2024-10-07 06:37] LABS: ANION GAP 6.7 mmol/L (5.0-14.0); CALCIUM 8.3 mg/dL (8.5-10.1); CREATININE 1.4 mg/dL (0.8-1.3); EST CRCL DRUG DOSING (CG) 66.08 mL/min; POTASSIUM,K 3.7 mmol/L (3.6-5.2)
[2024-10-07 06:38] LABS: INR 1.3
[2024-10-07] MEDS ORDERED: Central Total Parenteral Nutrition Bag SCH (11:45)
[2024-10-07] MEDS: Warfarin 5 MG Tab PO SCH (13:14)
[2024-10-07] MEDS: MVI, Adult with Vitamin K 10 ML, Zinc/Copper/Manganese/Selenium 1 ML in AA 5%/Calcium/D... IV SCH (13:20)
[2024-10-07] MEDS ORDERED: Polyethylene Glycol 3350 Powder 17 GM Packet PO ONE (14:03)
[2024-10-07] MEDS: Sucralfate 1 GM Tab PO SCH (16:05)
[2024-10-07] MEDS: Divalproex Sodium Delayed-Release 250 MG Tab.CR PO SCH (16:05)
[2024-10-08 06:46] LABS: CALCIUM 8.1 mg/dL (8.5-10.1); CREATININE 1.3 mg/dL (0.8-1.3); DIGOXIN 1.37 ng/mL (0.90-2.00); EST CRCL DRUG DOSING (CG) 71.16 mL/min; POTASSIUM,K 3.9 mmol/L (3.6-5.2)
[2024-10-08 06:47] LABS: ANION GAP 6.9 mmol/L (5.0-14.0)
[2024-10-08 06:49] LABS: INR 1.3; PROTHROMBIN TIME 13.4 sec (9.2-10.6)
[2024-10-08] MEDS: MVI, Adult with Vitamin K 10 ML, Zinc/Copper/Manganese/Selenium 1 ML in AA 5%/Calcium/D... IV SCH (14:19)
[2024-10-09 06:03] LABS: CALCIUM 8.4 mg/dL (8.5-10.1); CREATININE 1.4 mg/dL (0.8-1.3); EST CRCL DRUG DOSING (CG) 66.08 mL/min; POTASSIUM,K 3.8 mmol/L (3.6-5.2)
[2024-10-09 06:05] LABS: ANION GAP 11.8 mmol/L (5.0-14.0)
[2024-10-09 06:08] LABS: INR 1.4; PROTHROMBIN TIME 14.4 sec (9.2-10.6)
[2024-10-09] MEDS: Lactulose Soln 10 GM/15 ML 15 ML UD Cup PO SCH (20:16)
[2024-10-10 06:18] LABS: INR 1.6; PROTHROMBIN TIME 15.7 sec (9.2-10.6)
[2024-10-11 06:07] LABS: CALCIUM 8.3 mg/dL (8.5-10.1); CREATININE 1.4 mg/dL (0.8-1.3); EST CRCL DRUG DOSING (CG) 66.08 mL/min; POTASSIUM,K 4.1 mmol/L (3.6-5.2)
[2024-10-11 06:08] LABS: ANION GAP 9.1 mmol/L (5.0-14.0); INR 2.1; PROTHROMBIN TIME 21.2 sec (9.2-10.6)
[2024-10-12] MEDS ORDERED: Calcium Carbonate 500 MG Tab.Chew PO PRN (13:17)
[2024-10-12] MEDS: Lactulose Soln 10 GM/15 ML 15 ML UD Cup PO SCH (14:40)
[2024-10-12] MEDS ORDERED: Divalproex Sodium Delayed-Release 250 MG Tab.CR PO SCH (17:00)
[2024-10-12] MEDS: Divalproex Sodium Delayed-Release 125 MG Cap.Sprink PO SCH (17:16)
[2024-10-13] MEDS: Sodium Chloride 0.9% 500 ML IV ONE (00:25)
[2024-10-13 06:08] LABS: HEMATOCRIT 23.9 % (38.4-49.7); HEMOGLOBIN 7.7 g/dL (12.9-16.9); MEAN CORPUSCULAR HEMOGLOBIN 29.3 pg (31.6-35.5); MEAN CORPUSCULAR HGB CONC 32.2 g/dL (31.6-35.5); MEAN CORPUSCULAR VOLUME 90.9 fL (81.4-99.0); RED BLOOD CELL COUNT 2.63 M/uL (4.14-5.76); WHITE BLOOD CELL COUNT,WBC 3.5 K/uL (3.2-11.0)
[2024-10-13 06:29] LABS: A/G RATIO 0.6 (1.2-2.2); ALANINE AMINOTRANSFERASE,ALT 46 U/L (12-78); ALBUMIN 1.8 g/dL (3.4-5.0); ALKALINE PHOSPHATASE 56 U/L (46-116); ANION GAP 6.3 mmol/L (5.0-14.0); ASPARTATE AMNIOTRANSFERASE,AST 70 U/L (15-37); BILIRUBIN TOTAL 0.4 mg/dL (0.2-1.0); BLOOD UREA NITROGEN,BUN 51 mg/dL (7-18); CALCIUM 8.3 mg/dL (8.5-10.1); CARBON DIOXIDE,CO2 30 mmol/L (21-32); CHLORIDE,CL 104 mmol/L (100-108); CREATININE 1.6 mg/dL (0.8-1.3); EST CRCL DRUG DOSING (CG) 57.82 mL/min; ESTIMATED GFR 49 mL/min (>60); GLUCOSE RANDOM 67 mg/dL (74-106); POTASSIUM,K 4.3 mmol/L (3.6-5.2); PROTEIN TOTAL,TP 4.8 g/dL (6.4-8.2); SODIUM,NA 140 mmol/L (140-148)
[2024-10-13 06:44] LABS: PROTHROMBIN TIME 39.9 sec (9.2-10.6)
[2024-10-13 06:48] LABS: INR 4.1
[2024-10-13] MEDS: Lactulose Soln 10 GM/15 ML 15 ML UD Cup PO SCH (09:16)
[2024-10-13] MEDS: Albumin Human 25 GM in Premix Bag 1 BAG IV ONE (09:17)
[2024-10-14 06:13] LABS: ANION GAP 6.9 mmol/L (5.0-14.0); CALCIUM 8.6 mg/dL (8.5-10.1); CREATININE 1.7 mg/dL (0.8-1.3); EST CRCL DRUG DOSING (CG) 54.42 mL/min; POTASSIUM,K 4.6 mmol/L (3.6-5.2)
[2024-10-14 06:14] LABS: PROTHROMBIN TIME 43.3 sec (9.2-10.6)
[2024-10-14 06:17] LABS: INR 4.5
[2024-10-14] MEDS: Phytonadione 5 MG Tab PO ONE (09:18)
[2024-10-14] MEDS: Sodium Chloride 0.9% 1,000 ML IV SCH (09:54)
[2024-10-15 05:52] LABS: INR 3.5; PROTHROMBIN TIME 34.1 sec (9.2-10.6)
[2024-10-15 05:58] LABS: ALANINE AMINOTRANSFERASE,ALT 41 U/L (12-78); ALBUMIN 2.1 g/dL (3.4-5.0); ALKALINE PHOSPHATASE 55 U/L (46-116); ANION GAP 6.7 mmol/L (5.0-14.0); ASPARTATE AMNIOTRANSFERASE,AST 56 U/L (15-37); BILIRUBIN TOTAL 0.5 mg/dL (0.2-1.0); BLOOD UREA NITROGEN,BUN 53 mg/dL (7-18); CALCIUM 8.6 mg/dL (8.5-10.1); CARBON DIOXIDE,CO2 28 mmol/L (21-32); CHLORIDE,CL 105 mmol/L (100-108); CREATININE 1.6 mg/dL (0.8-1.3); EST CRCL DRUG DOSING (CG) 57.82 mL/min; ESTIMATED GFR 49 mL/min (>60); GLUCOSE RANDOM 66 mg/dL (74-106); POTASSIUM,K 4.4 mmol/L (3.6-5.2); PROTEIN TOTAL,TP 4.9 g/dL (6.4-8.2); SODIUM,NA 140 mmol/L (140-148)
[2024-10-15 05:59] LABS: A/G RATIO 0.8 (1.2-2.2)
[2024-10-15] MEDS: Albumin Human 25 GM in Premix Bag 1 BAG IV ONE (11:46)
[2024-10-15] MEDS: Sodium Chloride 0.9% 1,000 ML IV SCH (23:24)
[2024-10-16 06:02] LABS: INR 3.2; PROTHROMBIN TIME 31.2 sec (9.2-10.6)
[2024-10-16 06:06] LABS: ANION GAP 5.9 mmol/L (5.0-14.0); CALCIUM 8.7 mg/dL (8.5-10.1); CREATININE 1.6 mg/dL (0.8-1.3); DIGOXIN 1.76 ng/mL (0.90-2.00); EST CRCL DRUG DOSING (CG) 57.82 mL/min; POTASSIUM,K 4.5 mmol/L (3.6-5.2)
[2024-10-16] MEDS: Albumin Human 25 GM in Premix Bag 1 BAG IV ONE (10:08)
[2024-10-16] MEDS ORDERED: Morphine 10 MG/0.5 ML Oral Syringe PO PRN (12:23)
[2024-10-16] MEDS ORDERED: Warfarin** 1 MG TABLET PO SCH (13:00)
[2024-10-19 11:22] VITALS: PULSE 68
[2024-10-19 18:00] VITALS: BP 96/60
== END 2024-10-20 09:40 | DRG 432 ==
LOC: JP.ED 19:36 → EEVIPCON 09-17 01:28 → JP.MS 09-17 01:28
PROVIDERS: ADMIT Family Medicine; ATTEND Hospitalist
PROC: HZ2ZZZZ Detoxification Services for Substance Abuse Treatment (ICD-10-PCS; principal; 2024-09-17)
DX: K70.31 Alcoholic cirrhosis of liver with ascites (principal); E43 Unspecified severe protein-calorie malnutrition; K65.9 Peritonitis, unspecified; K83.09 Other cholangitis; Z66 Do not resuscitate; Z68.35 Body mass index [BMI] 35.0-35.9, adult; E66.01 Morbid (severe) obesity due to excess calories; G47.33 Obstructive sleep apnea (adult) (pediatric); R55 Syncope and collapse; K52.9 Noninfective gastroenteritis and colitis, unspecified; D69.6 Thrombocytopenia, unspecified; F41.9 Anxiety disorder, unspecified; Z51.5 Encounter for palliative care; F10.10 Alcohol abuse, uncomplicated; H54.7 Unspecified visual loss; K76.82 Hepatic encephalopathy; E78.00 Pure hypercholesterolemia, unspecified; K21.9 Gastro-esophageal reflux disease without esophagitis; K27.9 Peptic ulcer, site unspecified, unspecified as acute or chronic, without hemorrhage or perforation; N18.30 Chronic kidney disease, stage 3 unspecified; I12.9 Hypertensive chronic kidney disease with stage 1 through stage 4 chronic kidney disease, or unspecified chronic kidney disease; M10.9 Gout, unspecified; E55.9 Vitamin D deficiency, unspecified; E53.8 Deficiency of other specified B group vitamins; R79.89 Other specified abnormal findings of blood chemistry; R62.7 Adult failure to thrive; F32.9 Major depressive disorder, single episode, unspecified; D63.8 Anemia in other chronic diseases classified elsewhere; I48.0 Paroxysmal atrial fibrillation; D50.9 Iron deficiency anemia, unspecified; E88.09 Other disorders of plasma-protein metabolism, not elsewhere classified; Z88.8 Allergy status to other drugs, medicaments and biological substances; Z79.01 Long term (current) use of anticoagulants; Z79.899 Other long term (current) drug therapy; Z98.890 Other specified postprocedural states; Z98.84 Bariatric surgery status
CPT/HCPCS: 36415; 36430; 36569; 74176; 80048; 80053; 80162; 80307; 81001; 82042; 82140; 82550; 82728; 82945; 83550; 83615; 83735; 83880; 83986; 84100; 84157; 84439; 84443; 84478; 85018; 85025; 85027; 85610; 86140; 86316; 86850; 86900; 86901; 86920; 86922; 87070; 87205; 88112; 88305; 89050; 93005; 93010; 97110-GO; 97110-GP; 97162-GP; 97164-GP; 97165-GO; 97530-GP; 97535-GO; 99231; 99232; 99233; 99238; 99285; A9270-GY; C1751; J0696; J1940; J2060; J2405; J2916; J3475; J3490; J7030; J7040; P9016; P9047; Q0162